=== PATIENT | male | born 1975 | race African-American/Black ===

== ENCOUNTER 2022-04-29 18:28 | Inpatient (IN) | payer MEDICARE, MEDICAID ==
[~2022-04-29] VITALS: Ht 180.3 cm; Wt 111.0 kg
[2022-04-29 19:55] LABS: Basophils # (auto) 0.1 10 ^3/uL (0-0.2); Basophils % (auto) 1.6 % (0.0-2.0); Eosinophils # (auto) 0.6 10 ^3/uL (0-0.8); Eosinophils % (auto) 14.4 % (0.0-7.0); Hematocrit 28.5 % (41.0-53.0); Hemoglobin 9.1 g/dL (13.5-17.5); Lymphocytes % (auto) 22.9 % (10.0-50.0); Mean Corpuscular Hemoglobin 30.5 pg (28.0-32.0); Mean Corpuscular Volume 95.2 fL (80.0-100.0); Monocytes # (auto) 0.4 10 ^3/uL (0-1.3); Monocytes % (auto) 10.2 % (0.0-12.0); Neutrophils # (auto) 2.2 10 ^3/uL (1.6-8.6); Neutrophils % (auto) 50.9 % (37.0-80.0); Red Cell Distribution Width 15.8 % (11.8-14.3); White Blood Cell 4.3 10^3/uL (4.4-10.8)
[2022-04-29 20:11] LABS: Albumin 3.3 g/dL (3.4-5.0); Calcium 8.8 mg/dL (8.5-10.1)
[2022-04-29 20:25] LABS: BUN/Creatinine Ratio 3.9; Bilirubin, Total 0.5 mg/dL (0.2-1.0); Total Protein 5.9 g/dL (6.4-8.2)
[2022-04-29] MEDS ORDERED: ASPirin 325 MG TAB PO ONE (20:30)
[2022-04-29] MEDS ORDERED: IOHEXOL 350 MG/ML 100ML IJ ONE (20:35)
[2022-04-29] MEDS ORDERED: InsuLIN REG 1unit/0.01ml Soln (100units/ml) IV ONE (21:15)
[2022-04-29] MEDS ORDERED: ALBUTEROL SULF 2.5 MG/0.5ML(0.5%) NEB SOLN NEB ONE (21:15)
[2022-04-29] MEDS ORDERED: DEXTROSE (50%) 50ML SYRG IV ONE (21:15)
[2022-04-29] MEDS ORDERED: CALCIUM GLUC 1,000mg/50ml-NS 50 ML IV ONE (21:15)
[2022-04-29] MEDS ORDERED: hydrALAZINE HCL 20 MG/ML VL IV ONE ×2 (21:30→21:45)
[2022-04-29] MEDS ORDERED: ACETAMINOPHEN 325 MG TAB PO PRN (21:30)
[2022-04-29] MEDS ORDERED: MORPHINE SULFATE INJ 2 MG/ml SYRG IV PRN (21:30)
[2022-04-29] MEDS ORDERED: PANTOPRAZOLE 40 MG TAB PO ONE (21:30)
[2022-04-29] MEDS ORDERED: ALBUTEROL SULF 2.5 MG/0.5ML(0.5%) NEB SOLN NEB PRN (21:30)
[2022-04-29] MEDS ORDERED: ONDANSETRON HCL 4 MG/2 ML VIAL IV PRN (21:30)
[2022-04-29] MEDS ORDERED: NITROGLYCERIN 0.4 MG SL TAB SL PRN (21:30)
[2022-04-29] MEDS ORDERED: FUROSEMIDE 40 MG/4 ML VIAL IV ONE (21:45)
[2022-04-29 21:49] VITALS: BP 186/101
[2022-04-29] MEDS: hydrALAZINE HCL 25 MG TAB PO SCH (22:00)
[2022-04-29] MEDS: ATORVASTATIN 20 MG TAB PO SCH (22:40)
[2022-04-29] MEDS: CARVEDILOL 3.125 MG TAB PO SCH (22:49)
[2022-04-30 01:55] LABS: Urine Bacteria FEW /hpf (None Seen); Urine Blood TRACE /uL (Negative); Urine Specific Gravity 1.009 (1.001-1.035); Urine WBC 2 /hpf (0 - 3)
[2022-04-30] MEDS: AZITHROMYCIN 500MG/ 250ML 250 ML IV SCH (06:13)
[2022-04-30 06:23] LABS: Basophils # (auto) 0.1 10 ^3/uL (0-0.2); Basophils % (auto) 1.3 % (0.0-2.0); Eosinophils # (auto) 0.4 10 ^3/uL (0-0.8); Hematocrit 30.1 % (41.0-53.0); Hemoglobin 9.4 g/dL (13.5-17.5); Lymphocytes # (auto) 0.7 10 ^3/uL (0.4-5.4); Lymphocytes % (auto) 13.3 % (10.0-50.0); Mean Corpuscular Hemoglobin 30.7 pg (28.0-32.0); Mean Corpuscular Hgb Conc. 31.2 g/dL (32.0-36.0); Mean Corpuscular Volume 98.2 fL (80.0-100.0); Monocytes # (auto) 0.5 10 ^3/uL (0-1.3); Monocytes % (auto) 8.9 % (0.0-12.0); Neutrophils # (auto) 3.5 10 ^3/uL (1.6-8.6); Neutrophils % (auto) 69.5 % (37.0-80.0); Nucleated Red Blood Cells % 0.1 %; Red Blood Cells 3.06 10^6/uL (4.5-5.90); Red Cell Distribution Width 15.9 % (11.8-14.3); White Blood Cell 5.1 10^3/uL (4.4-10.8)
[2022-04-30 06:45] LABS: Potassium 6.7 mmol/L (3.5-5.1)
[2022-04-30 06:47] LABS: Albumin 3.2 g/dL (3.4-5.0); BUN/Creatinine Ratio 3.8; Bilirubin, Total 0.4 mg/dL (0.2-1.0); Calcium 8.6 mg/dL (8.5-10.1); Total Protein 6.3 g/dL (6.4-8.2)
[2022-04-30] MEDS: hydrALAZINE HCL 20 MG/ML VL IV PRN (06:48)
[2022-04-30] MEDS: cefTRIAXone 1GM/50ML D5W 50 ML IV SCH (07:31)
[2022-04-30] MEDS ORDERED: ALBUTEROL SULF 2.5 MG/0.5ML(0.5%) NEB SOLN NEB ONE (09:00)
[2022-04-30] MEDS ORDERED: CALCIUM GLUC 1,000mg/50ml-NS 50 ML IV ONE (09:00)
[2022-04-30] MEDS ORDERED: FUROSEMIDE 40 MG/4 ML VIAL IV ONE (09:00)
[2022-04-30] MEDS ORDERED: DEXTROSE (50%) 50ML SYRG IV ONE (09:00)
[2022-04-30] MEDS ORDERED: InsuLIN REG 1unit/0.01ml Soln (100units/ml) IV ONE (09:00)
[2022-04-30] MEDS: FUROSEMIDE 20 MG TAB PO SCH (09:39)
[2022-04-30] MEDS: hydrALAZINE HCL 25 MG TAB PO SCH (09:54)
[2022-04-30] MEDS: CARVEDILOL 3.125 MG TAB PO SCH (09:54)
[2022-04-30] MEDS: ASPirin 81 mg TAB PO SCH (09:54)
[2022-04-30] MEDS ORDERED: amLODIPine BESYLATE 5 MG TAB PO SCH (10:00)
[2022-04-30] MEDS ORDERED: cloNIDine 0.2 mg/24hr 7DAY PATCH TD SCH (10:15)
[2022-04-30 11:58] LABS: Cholesterol 133 mg/dL (< 200); HDL Cholesterol 57 mg/dL (40-59); LDL Cholesterol 72 mg/dL (< 100); Triglycerides 68 mg/dL (< 150)
[2022-04-30] MEDS: HYDROcodone-ACET 5/325MG TAB PO PRN ×2 (13:31→21:31)
[2022-04-30 16:45] VITALS: BP 179/91
[2022-04-30 17:00] VITALS: BP 179/81
[2022-04-30] MEDS: hydrALAZINE HCL 20 MG/ML VL IV SCH ×2 (17:02→21:30)
[2022-04-30] MEDS: MORPHINE SULFATE INJ 2 MG/ml SYRG IV PRN (18:19)
[2022-04-30] MEDS: ATORVASTATIN 20 MG TAB PO SCH (21:30)
[2022-04-30 22:00] VITALS: BP 188/85
[2022-05-01] MEDS: MORPHINE SULFATE INJ 2 MG/ml SYRG IV PRN (02:04)
[2022-05-01 05:15] VITALS: BP 172/86
[2022-05-01] MEDS: hydrALAZINE HCL 20 MG/ML VL IV SCH (06:00)
[2022-05-01 07:30] VITALS: BP 185/97
[2022-05-01 08:29] VITALS: BP 185/97
[2022-05-01] MEDS: ASPirin 81 mg TAB PO SCH (09:33)
[2022-05-01] MEDS: FUROSEMIDE 20 MG TAB PO SCH (09:33)
[2022-05-01] MEDS: cefTRIAXone 1GM/50ML D5W 50 ML IV SCH (09:33)
[2022-05-01] MEDS: AZITHROMYCIN 500MG/ 250ML 250 ML IV SCH (09:34)
[2022-05-01] MEDS: METOPROLOL SUCCINATE XL 50 MG TAB PO SCH (09:34)
[2022-05-01] MEDS ORDERED: NIFEdipine ER 30 MG TAB PO SCH (10:00)
[2022-05-01] MEDS ORDERED: MINOXIDIL 2.5 MG TAB PO ONE (11:00)
[2022-05-01 11:40] VITALS: BP 170/85
[2022-05-01] MEDS ORDERED: ERGOCALCIFEROL 50,000 UNIT(1.25MG) CAP PO SCH (12:00)
[2022-05-01] MEDS: hydrALAZINE HCL 25 MG TAB PO SCH ×2 (14:19→21:18)
[2022-05-01] MEDS: NIFEdipine ER 30 MG TAB PO SCH (15:42)
[2022-05-01 16:52] VITALS: BP 166/96
[2022-05-01] MEDS: hydrALAZINE HCL 20 MG/ML VL IV PRN (18:48)
[2022-05-01] MEDS: ATORVASTATIN 20 MG TAB PO SCH (21:18)
[2022-05-01 22:00] VITALS: BP 137/70
[2022-05-02] VITALS (7 sets, daily range): BP systolic 109–132; BP diastolic 56–66
[2022-05-02 04:47] LABS: BUN/Creatinine Ratio 3.9
[2022-05-02 04:51] LABS: Potassium 6.1 mmol/L (3.5-5.1)
[2022-05-02] MEDS: hydrALAZINE HCL 25 MG TAB PO SCH ×3 (06:45→21:36)
[2022-05-02] MEDS ORDERED: SODIUM CHL 0.9% 1000 ML BAG XX ONE ×2 (07:00→10:15)
[2022-05-02] MEDS: cefTRIAXone 1GM/50ML D5W 50 ML IV SCH (09:00)
[2022-05-02] MEDS: AZITHROMYCIN 500MG/ 250ML 250 ML IV SCH (09:50)
[2022-05-02] MEDS: ASPirin 81 mg TAB PO SCH (09:50)
[2022-05-02] MEDS: FUROSEMIDE 20 MG TAB PO SCH (09:52)
[2022-05-02] MEDS: MINOXIDIL 2.5 MG TAB PO SCH (09:53)
[2022-05-02] MEDS: METOPROLOL SUCCINATE XL 50 MG TAB PO SCH (09:53)
[2022-05-02] MEDS: NIFEdipine ER 30 MG TAB PO SCH (09:53)
[2022-05-02] MEDS ORDERED: SODIUM ZIRCONIUM CYCL 10 GM PAK PO ONE (10:45)
[2022-05-02] MEDS ORDERED: ALBUTEROL SULF 2.5 MG/0.5ML(0.5%) NEB SOLN NEB ONE (10:45)
[2022-05-02] MEDS: HYDROcodone-ACET 5/325MG TAB PO PRN ×2 (11:43→21:37)
[2022-05-02] MEDS ORDERED: EPOETIN ALFA-EPBX 4,000 UNIT/ML VIAL SC ONE (21:00)
[2022-05-02] MEDS: ATORVASTATIN 20 MG TAB PO SCH (21:36)
[2022-05-03 05:00] VITALS: BP 139/67
[2022-05-03] MEDS: hydrALAZINE HCL 25 MG TAB PO SCH (05:08)
[2022-05-03 05:21] LABS: Potassium 5.3 mmol/L (3.5-5.1)
[2022-05-03 05:25] LABS: BUN/Creatinine Ratio 3.3; Calcium 8.7 mg/dL (8.5-10.1)
[2022-05-03 09:00] VITALS: BP 119/58
[2022-05-03] MEDS: cefTRIAXone 1GM/50ML D5W 50 ML IV SCH (09:33)
[2022-05-03] MEDS: AZITHROMYCIN 500MG/ 250ML 250 ML IV SCH ×2 (10:00→10:26)
[2022-05-03] MEDS ORDERED: MIN25T PO (10:01)
[2022-05-03] MEDS ORDERED: SODI10PA PO (10:01)
[2022-05-03] MEDS ORDERED: ERGO1CAP23 PO (10:01)
[2022-05-03] MEDS ORDERED: AZIT250T PO (10:02)
[2022-05-03] MEDS: FUROSEMIDE 20 MG TAB PO SCH (10:27)
[2022-05-03] MEDS: ASPirin 81 mg TAB PO SCH (10:27)
[2022-05-03] MEDS: NIFEdipine ER 30 MG TAB PO SCH (10:28)
[2022-05-03] MEDS: MINOXIDIL 2.5 MG TAB PO SCH (10:28)
[2022-05-03] MEDS: METOPROLOL SUCCINATE XL 50 MG TAB PO SCH (10:29)
[2022-05-03 11:48] VITALS: BP 119/58
== END 2022-05-03 14:00 | disposition home or self-care (01) | DRG 291 ==
LOC: ER 18:28 → TELE 21:40 → TELE-CENTR 04-30 15:42
PROVIDERS: ADMIT Nurse Practitioner; ATTEND Internal Medicine
PROC: 5A1D70Z Performance of Urinary Filtration, Intermittent, Less than 6 Hours Per Day (ICD-10-PCS; principal; 2022-04-30)
PROC: 5A1D70Z Performance of Urinary Filtration, Intermittent, Less than 6 Hours Per Day (ICD-10-PCS; 2022-05-02)
DX: I13.2 Hypertensive heart and chronic kidney disease with heart failure and with stage 5 chronic kidney disease, or end stage renal disease (principal); I50.43 Acute on chronic combined systolic (congestive) and diastolic (congestive) heart failure; J18.9 Pneumonia, unspecified organism; J96.01 Acute respiratory failure with hypoxia; N18.6 End stage renal disease; I16.0 Hypertensive urgency; D63.1 Anemia in chronic kidney disease; E78.5 Hyperlipidemia, unspecified; E87.5 Hyperkalemia; Z20.822 Contact with and (suspected) exposure to COVID-19; E66.9 Obesity, unspecified; M89.9 Disorder of bone, unspecified; Z99.2 Dependence on renal dialysis; Z82.49 Family history of ischemic heart disease and other diseases of the circulatory system; Z68.34 Body mass index [BMI] 34.0-34.9, adult; Z86.16 Personal history of COVID-19
CPT/HCPCS: 36415; 71045; 71275; 80048; 80053; 80061; 81001; 82306; 82962; 83036; 83735; 83880; 84132; 84443; 84484; 85025; 85379; 87081; 87426; 90935; 93005; 93306; 94640; 94644; 96365; 96366; 96367; 96368; 96375; 96376; 99291; G0378; J0696; J1642; J1815

== ENCOUNTER 2022-05-23 09:34 | Inpatient (IN) | payer MEDICARE, MEDICAID ==
[~2022-05-23 09:34] MED LIST: AZIT250T PO; ERGO1CAP23 PO; MIN25T PO; SODI10PA PO
[2022-05-23 10:24] LABS: Basophils # (auto) 0.1 10 ^3/uL (0-0.2); Basophils % (auto) 1.3 % (0.0-2.0); Eosinophils # (auto) 0.7 10 ^3/uL (0-0.8); Eosinophils % (auto) 13.5 % (0.0-7.0); Hematocrit 27.9 % (41.0-53.0); Hemoglobin 9.2 g/dL (13.5-17.5); Lymphocytes # (auto) 0.7 10 ^3/uL (0.4-5.4); Lymphocytes % (auto) 14.6 % (10.0-50.0); Mean Corpuscular Hemoglobin 30.5 pg (28.0-32.0); Mean Corpuscular Volume 92.3 fL (80.0-100.0); Monocytes # (auto) 0.6 10 ^3/uL (0-1.3); Monocytes % (auto) 13.1 % (0.0-12.0); Neutrophils # (auto) 2.8 10 ^3/uL (1.6-8.6); Neutrophils % (auto) 57.5 % (37.0-80.0); Red Blood Cells 3.02 10^6/uL (4.5-5.90); Red Cell Distribution Width 14.3 % (11.8-14.3); White Blood Cell 4.9 10^3/uL (4.4-10.8)
[2022-05-23 10:42] LABS: Potassium 4.2 mmol/L (3.5-5.1)
[2022-05-23] MEDS ORDERED: cloNIDine HCL 0.1 MG TAB PO ONE (10:45)
[2022-05-23 10:49] LABS: Albumin 3.4 g/dL (3.4-5.0); BUN/Creatinine Ratio 3.1; Bilirubin, Total 0.6 mg/dL (0.2-1.0); Total Protein 6.4 g/dL (6.4-8.2)
[2022-05-23] MEDS ORDERED: SODIUM CHLORIDE 0.9% 1,000 ML IV ONE (11:00)
[2022-05-23 12:17] VITALS: BP 152/82
[2022-05-23] MEDS ORDERED: FUROSEMIDE 40 MG/4 ML VIAL IV ONE ×2 (13:00→14:45)
[2022-05-23 13:15] LABS: INR 1.07 (0.9-1.15); Partial Thromboplastin Time 25.7 sec (24.6-33.4)
[2022-05-23] MEDS ORDERED: NITROGLYCERIN 0.4 MG SL TAB SL PRN (14:30)
[2022-05-23] MEDS ORDERED: MORPHINE SULFATE INJ 2 MG/ml SYRG IV PRN (14:30)
[2022-05-23] MEDS ORDERED: FURO1TAB33 PO (14:39)
[2022-05-23] MEDS ORDERED: hydrALAZINE HCL 20 MG/ML VL IV PRN (15:15)
[2022-05-23] MEDS ORDERED: HEPARIN SODIUM (PORCINE) 5000 UNITS/ML 1ML VIAL SC SCH (22:00)
[2022-05-24] MEDS ORDERED: FUROSEMIDE 20 MG/2 ML VIAL IV SCH (10:00)
== END 2022-05-23 17:20 | disposition left against medical advice (07) | DRG 291 ==
LOC: ER 09:34 → TELE 14:36
PROVIDERS: ADMIT Nurse Practitioner Family; ATTEND Nurse Practitioner Family
DX: I13.2 Hypertensive heart and chronic kidney disease with heart failure and with stage 5 chronic kidney disease, or end stage renal disease (principal); I50.43 Acute on chronic combined systolic (congestive) and diastolic (congestive) heart failure; J96.01 Acute respiratory failure with hypoxia; N18.6 End stage renal disease; E44.1 Mild protein-calorie malnutrition; I16.1 Hypertensive emergency; E66.9 Obesity, unspecified; E78.5 Hyperlipidemia, unspecified; D63.8 Anemia in other chronic diseases classified elsewhere; Z82.49 Family history of ischemic heart disease and other diseases of the circulatory system; Z79.899 Other long term (current) drug therapy; Z99.2 Dependence on renal dialysis; Z68.30 Body mass index [BMI] 30.0-30.9, adult
CPT/HCPCS: 36415; 36600; 71045; 80053; 82805; 83735; 83880; 84484; 85025; 85379; 85610; 85730; 93005; G0378

== ENCOUNTER 2022-05-26 02:17 | Inpatient (IN) | payer MEDICARE, MEDICAID ==
[~2022-05-26] VITALS: Ht 180.3 cm; Wt 110.1 kg
[~2022-05-26 02:17] MED LIST changes: +FURO1TAB33 PO
[2022-05-26] MEDS ORDERED: FUROSEMIDE 20 MG TAB PO ONE (03:15)
[2022-05-26] MEDS ORDERED: cloNIDine HCL 0.1 MG TAB PO ONE (03:15)
[2022-05-26 04:13] LABS: Basophils # (auto) 0.1 10 ^3/uL (0-0.2); Eosinophils # (auto) 0.8 10 ^3/uL (0-0.8); Eosinophils % (auto) 13.9 % (0.0-7.0); Hematocrit 29.3 % (41.0-53.0); Hemoglobin 9.8 g/dL (13.5-17.5); Lymphocytes % (auto) 18.3 % (10.0-50.0); Mean Corpuscular Hemoglobin 30.6 pg (28.0-32.0); Mean Corpuscular Hgb Conc. 33.3 g/dL (32.0-36.0); Mean Corpuscular Volume 91.9 fL (80.0-100.0); Monocytes # (auto) 0.6 10 ^3/uL (0-1.3); Monocytes % (auto) 11.3 % (0.0-12.0); Neutrophils # (auto) 3.1 10 ^3/uL (1.6-8.6); Neutrophils % (auto) 55.5 % (37.0-80.0); Nucleated Red Blood Cells % 0.1 %; Red Blood Cells 3.19 10^6/uL (4.5-5.90); Red Cell Distribution Width 14.8 % (11.8-14.3); White Blood Cell 5.5 10^3/uL (4.4-10.8)
[2022-05-26 04:23] LABS: INR 1.05 (0.9-1.15); Partial Thromboplastin Time 26.8 sec (24.6-33.4)
[2022-05-26 04:24] LABS: Albumin 3.5 g/dL (3.4-5.0); BUN/Creatinine Ratio 3.6; Potassium 4.2 mmol/L (3.5-5.1)
[2022-05-26 04:27] LABS: Bilirubin, Total 0.8 mg/dL (0.2-1.0); Total Protein 6.5 g/dL (6.4-8.2)
[2022-05-26] MEDS ORDERED: NTG 0.1MG/HR TOPICAL PATCH TD ONE (05:45)
[2022-05-26] MEDS ORDERED: NITROGLYCERIN 0.4 MG SL TAB SL PRN (06:45)
[2022-05-26] MEDS ORDERED: ONDANSETRON HCL 4 MG/2 ML VIAL IV PRN (06:45)
[2022-05-26] MEDS ORDERED: cloNIDine HCL 0.1 MG TAB PO PRN (06:45)
[2022-05-26] MEDS ORDERED: ACETAMINOPHEN 325 MG TAB PO PRN (06:45)
[2022-05-26] MEDS ORDERED: MORPHINE SULFATE INJ 2 MG/ml SYRG IV PRN ×4 (06:45→17:30)
[2022-05-26] MEDS ORDERED: NIFEdipine ER 30 MG TAB PO SCH (10:00)
[2022-05-26] MEDS: ASPirin 81 mg TAB PO SCH (10:50)
[2022-05-26] MEDS: hydrALAZINE HCL 25 MG TAB PO SCH ×2 (10:50→21:47)
[2022-05-26] MEDS: FUROSEMIDE 40 MG TAB PO SCH (10:51)
[2022-05-26] MEDS: METOPROLOL TARTRATE 50 MG TAB PO SCH ×2 (10:51→21:48)
[2022-05-26] MEDS: PANTOPRAZOLE 40 MG TAB PO SCH (10:52)
[2022-05-26] MEDS ORDERED: cefTRIAXone 1GM/50ML D5W 50 ML IV ONE (14:00)
[2022-05-26] MEDS ORDERED: DOXYCYCLINE 100 MG TAB/CAP PO ONE (14:00)
[2022-05-26 14:19] VITALS: BP 181/96
[2022-05-26 16:45] VITALS: BP 173/84
[2022-05-26 17:09] VITALS: BP 173/84
[2022-05-26] MEDS ORDERED: SODIUM CHL 0.9% 1000 ML BAG XX SCH (17:45)
[2022-05-26] MEDS: IPRATROPIUM BROM 0.5 MG/2.5ML INH SOL NEB SCH ×2 (19:15→23:52)
[2022-05-26] MEDS: ALBUTEROL SULF 2.5 MG/0.5ML(0.5%) NEB SOLN NEB SCH ×2 (19:15→23:52)
[2022-05-26 20:00] VITALS: BP 178/92
[2022-05-26] MEDS: MINOXIDIL 2.5 MG TAB PO SCH (21:48)
[2022-05-26] MEDS: DOXYCYCLINE 100 MG TAB/CAP PO SCH (21:49)
[2022-05-26 22:00] VITALS: BP 134/66
[2022-05-27 05:00] VITALS: BP 126/86
[2022-05-27] MEDS: ALBUTEROL SULF 2.5 MG/0.5ML(0.5%) NEB SOLN NEB SCH ×3 (05:52→19:25)
[2022-05-27] MEDS: IPRATROPIUM BROM 0.5 MG/2.5ML INH SOL NEB SCH ×3 (05:52→19:25)
[2022-05-27 07:19] LABS: Hematocrit 26.4 % (41.0-53.0); Hemoglobin 8.9 g/dL (13.5-17.5); Mean Corpuscular Hemoglobin 30.6 pg (28.0-32.0); Mean Corpuscular Hgb Conc. 33.5 g/dL (32.0-36.0); Mean Corpuscular Volume 91.2 fL (80.0-100.0); Red Cell Distribution Width 14.7 % (11.8-14.3); White Blood Cell 3.9 10^3/uL (4.4-10.8)
[2022-05-27 07:25] LABS: Band Neutrophils % (manual) 0; Basophils % (manual) 0 (0.0-2.0); Blast Cells 0; Metamyelocytes % 0; Myelocytes % 0; Promyelocytes % 0; Reactive Lymphocytes 0
[2022-05-27 07:38] LABS: Albumin 3.1 g/dL (3.4-5.0); BUN/Creatinine Ratio 3.2; Potassium 4.2 mmol/L (3.5-5.1)
[2022-05-27 07:41] LABS: Bilirubin, Total 0.7 mg/dL (0.2-1.0); Total Protein 6.2 g/dL (6.4-8.2)
[2022-05-27] MEDS: FUROSEMIDE 40 MG TAB PO SCH (08:48)
[2022-05-27] MEDS: NIFEdipine ER 30 MG TAB PO SCH (08:48)
[2022-05-27] MEDS: hydrALAZINE HCL 25 MG TAB PO SCH ×2 (08:49→21:16)
[2022-05-27] MEDS: PANTOPRAZOLE 40 MG TAB PO SCH (08:49)
[2022-05-27] MEDS: METOPROLOL TARTRATE 50 MG TAB PO SCH ×2 (08:49→21:17)
[2022-05-27] MEDS: MINOXIDIL 2.5 MG TAB PO SCH ×2 (08:49→21:17)
[2022-05-27] MEDS: DOXYCYCLINE 100 MG TAB/CAP PO SCH ×2 (08:50→21:18)
[2022-05-27] MEDS: cefTRIAXone 1GM/50ML D5W 50 ML IV SCH (08:50)
[2022-05-27] MEDS: ASPirin 81 mg TAB PO SCH (08:50)
[2022-05-27 09:00] VITALS: BP 120/56
[2022-05-27 13:00] VITALS: BP 143/62
[2022-05-27 13:31] LABS: Eosinophils % (manual) 21 (0-7); Lymphocytes % (manual) 25 (10.0-50.0); Monocytes % (manual) 12 (0-12)
[2022-05-27 16:52] VITALS: BP 117/78
[2022-05-27 22:00] VITALS: BP 123/66
[2022-05-28] MEDS: ALBUTEROL SULF 2.5 MG/0.5ML(0.5%) NEB SOLN NEB SCH ×4 (00:24→18:22)
[2022-05-28] MEDS: IPRATROPIUM BROM 0.5 MG/2.5ML INH SOL NEB SCH ×4 (00:24→18:22)
[2022-05-28 05:00] VITALS: BP 168/82
[2022-05-28 09:00] VITALS: BP 153/78
[2022-05-28] MEDS: cefTRIAXone 1GM/50ML D5W 50 ML IV SCH (09:00)
[2022-05-28] MEDS: hydrALAZINE HCL 25 MG TAB PO SCH (10:00)
[2022-05-28] MEDS: MINOXIDIL 2.5 MG TAB PO SCH (10:00)
[2022-05-28] MEDS: NIFEdipine ER 30 MG TAB PO SCH (10:00)
[2022-05-28] MEDS ORDERED: BUMETANIDE 2.5mg/10ml (0.25 mg/ml) INJ IV SCH (10:00)
[2022-05-28] MEDS: ASPirin 81 mg TAB PO SCH (10:00)
[2022-05-28] MEDS ORDERED: metOLazone 5 MG TAB PO SCH (10:00)
[2022-05-28] MEDS: METOPROLOL TARTRATE 50 MG TAB PO SCH (10:00)
[2022-05-28] MEDS: DOXYCYCLINE 100 MG TAB/CAP PO SCH (10:00)
[2022-05-28] MEDS ORDERED: SODIUM CHL 0.9% 1000 ML BAG XX ONE (10:30)
[2022-05-28 13:00] VITALS: BP 156/72
[2022-05-28] MEDS ORDERED: DOX100T PO (13:55)
[2022-05-28 16:52] VITALS: BP 143/62
[2022-05-28 18:02] VITALS: BP 123/66
[2022-05-28 18:10] VITALS: BP 123/66
[2022-05-28] MEDS ORDERED: EPOETIN ALFA-EPBX 10,000 UNIT/1ML VIAL SC ONE (21:00)
== END 2022-05-28 18:30 | disposition home or self-care (01) | DRG 177 ==
LOC: ER 02:17 → TELE 06:33 → TELE-EAST 16:49
PROVIDERS: ADMIT Nurse Practitioner; ATTEND Internal Medicine
PROC: 5A1D70Z Performance of Urinary Filtration, Intermittent, Less than 6 Hours Per Day (ICD-10-PCS; principal; 2022-05-26)
PROC: 5A1D70Z Performance of Urinary Filtration, Intermittent, Less than 6 Hours Per Day (ICD-10-PCS; 2022-05-28)
DX: J15.6 Pneumonia due to other Gram-negative bacteria (principal); J96.01 Acute respiratory failure with hypoxia; N18.6 End stage renal disease; I13.2 Hypertensive heart and chronic kidney disease with heart failure and with stage 5 chronic kidney disease, or end stage renal disease; I16.0 Hypertensive urgency; I50.82 Biventricular heart failure; Z20.822 Contact with and (suspected) exposure to COVID-19; D63.8 Anemia in other chronic diseases classified elsewhere; Z91.15 Patient's noncompliance with renal dialysis; Z99.2 Dependence on renal dialysis; Z82.49 Family history of ischemic heart disease and other diseases of the circulatory system; Z91.199 Patient's noncompliance with other medical treatment and regimen due to unspecified reason
CPT/HCPCS: 36415; 36600; 71045; 80053; 82805; 83880; 84484; 85007; 85025; 85027; 85610; 85730; 86706; 87081; 87426; 90935; 93005; 94640; 96365; 96375; 99291; 99292; G0378; J0696; J1642

== ENCOUNTER → 2022-08-07 | Outpatient (CLI) | payer MEDICARE, MEDICAID ==
[~2022-08-07] MED LIST changes: -AZIT250T PO; +DOX100T PO
== END | disposition home or self-care (01) ==
LOC: LAB 09:35
PROVIDERS: ATTEND Internal Medicine
DX: Z12.11 Encounter for screening for malignant neoplasm of colon (principal)
CPT/HCPCS: 82274

== ENCOUNTER 2022-08-18 15:59 | Emergency (ER) | payer MEDICARE, MEDICAID ==
[~2022-08-18] VITALS: Ht 180.3 cm; Wt 96.3 kg
[2022-08-18 16:57] VITALS: BP 147/81
[2022-08-18] MEDS ORDERED: AMOX-277 PO (17:37)
[2022-08-18] MEDS ORDERED: ACET1CAP14 PO (17:39)
[2022-08-18] MEDS ORDERED: ACETAMINOPHEN 500 MG TAB PO ONE (17:45)
== END 2022-08-18 17:44 | disposition home or self-care (01) ==
LOC: ER 15:59
DX: H66.92 Otitis media, unspecified, left ear (principal); I13.2 Hypertensive heart and chronic kidney disease with heart failure and with stage 5 chronic kidney disease, or end stage renal disease; N18.6 End stage renal disease; I50.9 Heart failure, unspecified

== ENCOUNTER 2022-09-11 10:18 | Inpatient (IN) | payer MEDICARE, MEDICAID ==
[~2022-09-11] VITALS: Ht 180.3 cm; Wt 100.0 kg
[~2022-09-11 10:18] MED LIST changes: +ACET1CAP14 PO; +AMOX-277 PO
[2022-09-11 11:44] LABS: Basophils # (auto) 0.1 10 ^3/uL (0-0.2); Basophils % (auto) 1.2 % (0.0-2.0); Eosinophils # (auto) 0.9 10 ^3/uL (0-0.8); Eosinophils % (auto) 14.9 % (0.0-7.0); Hematocrit 34.6 % (41.0-53.0); Hemoglobin 11.2 g/dL (13.5-17.5); Lymphocytes # (auto) 0.8 10 ^3/uL (0.4-5.4); Lymphocytes % (auto) 14.1 % (10.0-50.0); Mean Corpuscular Hemoglobin 30.5 pg (28.0-32.0); Mean Corpuscular Hgb Conc. 32.5 g/dL (32.0-36.0); Mean Corpuscular Volume 93.7 fL (80.0-100.0); Monocytes # (auto) 0.6 10 ^3/uL (0-1.3); Monocytes % (auto) 10.1 % (0.0-12.0); Neutrophils # (auto) 3.5 10 ^3/uL (1.6-8.6); Neutrophils % (auto) 59.7 % (37.0-80.0); Nucleated Red Blood Cells % 0.1 %; Red Blood Cells 3.69 10^6/uL (4.5-5.90); Red Cell Distribution Width 17.7 % (11.8-14.3); White Blood Cell 5.9 10^3/uL (4.4-10.8)
[2022-09-11 11:56] LABS: INR 1.03 (0.9-1.15); Partial Thromboplastin Time 25.4 sec (24.6-33.4)
[2022-09-11 12:35] LABS: Potassium 4.9 mmol/L (3.5-5.1)
[2022-09-11 12:36] LABS: BUN/Creatinine Ratio 4.3
[2022-09-11 12:38] LABS: Albumin 3.4 g/dL (3.4-5.0); Bilirubin, Total 0.6 mg/dL (0.2-1.0); Calcium 9.1 mg/dL (8.5-10.1); Magnesium 2.8 mg/dL (1.6-2.6)
[2022-09-11 12:51] LABS: Urine Bacteria FEW /hpf (None Seen); Urine Blood Negative /uL (Negative); Urine Specific Gravity 1.007 (1.001-1.035); Urine WBC <1 /hpf (0 - 3)
[2022-09-11] MEDS ORDERED: HYDROcodone-ACET 5/325MG TAB PO PRN (14:00)
[2022-09-11] MEDS ORDERED: ACETAMINOPHEN 325 MG TAB PO PRN ×2 (14:00)
[2022-09-11] MEDS ORDERED: methylPREDNISolone SOD SUCC 125 MG/2 ML VL IV ONE (14:00)
[2022-09-11] MEDS ORDERED: MORPHINE SULFATE INJ 2 MG/ml SYRG IV PRN (14:00)
[2022-09-11] MEDS ORDERED: PANTOPRAZOLE 40 MG/10 ML VIAL INJ IV ONE (14:00)
[2022-09-11] MEDS ORDERED: NITROGLYCERIN 0.4 MG SL TAB SL PRN (14:00)
[2022-09-11] MEDS ORDERED: ALBUTEROL SULF 2.5 MG/0.5ML(0.5%) NEB SOLN NEB PRN (14:00)
[2022-09-11] MEDS ORDERED: FUROSEMIDE 20 MG/2 ML VIAL IV ONE (14:15)
[2022-09-11] MEDS: hydrALAZINE HCL 20 MG/ML VL IV PRN (18:27)
[2022-09-11] MEDS ORDERED: ALBUTEROL MEDNEB 2.5 mg/3ml NEB ONE (18:30)
[2022-09-11] MEDS: ALBUTEROL SULF 2.5 MG/0.5ML(0.5%) NEB SOLN NEB SCH ×2 (19:16→22:29)
[2022-09-11] MEDS: IPRATROPIUM BROM 0.5 MG/2.5ML INH SOL NEB SCH ×2 (19:16→22:29)
[2022-09-11 22:00] VITALS: BP 95/67
[2022-09-11] MEDS ORDERED: cloNIDine 0.2 mg/24hr 7DAY PATCH TD SCH (23:00)
[2022-09-11] MEDS: methylPREDNISolone SOD SUCC 125 MG/2 ML VL IV SCH (23:06)
[2022-09-11] MEDS: HEPARIN SODIUM (PORCINE) 5000 UNITS/ML 1ML VIAL SC SCH (23:09)
[2022-09-11] MEDS ORDERED: METOPROLOL TARTRATE 50 MG TAB PO ONE (23:30)
[2022-09-11] MEDS ORDERED: hydrALAZINE HCL 20 MG/ML VL IV ONE (23:30)
[2022-09-12] VITALS (9 sets, daily range): BP systolic 132–203; BP diastolic 74–113
[2022-09-12] MEDS ORDERED: FURO1TAB32 PO (01:10)
[2022-09-12] MEDS ORDERED: FERR1TAB17 PO (01:10)
[2022-09-12] MEDS ORDERED: HYDR100T22 PO (01:10)
[2022-09-12] MEDS ORDERED: NIFE1TAB30 PO (01:10)
[2022-09-12] MEDS ORDERED: METO-158 PO (01:10)
[2022-09-12] MEDS: ALBUTEROL SULF 2.5 MG/0.5ML(0.5%) NEB SOLN NEB SCH ×5 (02:00→21:30)
[2022-09-12] MEDS: IPRATROPIUM BROM 0.5 MG/2.5ML INH SOL NEB SCH ×5 (02:00→21:30)
[2022-09-12] MEDS: hydrALAZINE HCL 20 MG/ML VL IV PRN (02:55)
[2022-09-12] MEDS: HYDROcodone-ACET 5/325MG TAB PO PRN (03:18)
[2022-09-12] MEDS ORDERED: amLODIPine BESYLATE 5 MG TAB ONE (03:52)
[2022-09-12] MEDS ORDERED: hydrALAZINE HCL 25 MG TAB ONE ×2 (03:55→03:56)
[2022-09-12] MEDS ORDERED: amLODIPine BESYLATE 5 MG TAB PO ONE (04:00)
[2022-09-12] MEDS ORDERED: hydrALAZINE HCL 25 MG TAB PO ONE (04:00)
[2022-09-12] MEDS ORDERED: hydrALAZINE HCL 20 MG/ML VL IV ONE (05:15)
[2022-09-12 05:53] LABS: Basophils # (auto) 0 10 ^3/uL (0-0.2); Basophils % (auto) 0.1 % (0.0-2.0); Eosinophils # (auto) 0 10 ^3/uL (0-0.8); Eosinophils % (auto) 0.1 % (0.0-7.0); Hematocrit 32.6 % (41.0-53.0); Hemoglobin 11.1 g/dL (13.5-17.5); Lymphocytes # (auto) 0.3 10 ^3/uL (0.4-5.4); Lymphocytes % (auto) 7.4 % (10.0-50.0); Mean Corpuscular Hemoglobin 31.7 pg (28.0-32.0); Mean Corpuscular Hgb Conc. 34.1 g/dL (32.0-36.0); Mean Corpuscular Volume 92.8 fL (80.0-100.0); Monocytes # (auto) 0 10 ^3/uL (0-1.3); Monocytes % (auto) 1.2 % (0.0-12.0); Neutrophils # (auto) 3.3 10 ^3/uL (1.6-8.6); Neutrophils % (auto) 91.2 % (37.0-80.0); Nucleated Red Blood Cells % 0.1 %; Red Blood Cells 3.51 10^6/uL (4.5-5.90); Red Cell Distribution Width 17.7 % (11.8-14.3); White Blood Cell 3.6 10^3/uL (4.4-10.8)
[2022-09-12] MEDS ORDERED: ALBUTEROL MEDNEB 2.5 mg/3ml NEB ONE ×5 (06:03→21:26)
[2022-09-12 06:18] LABS: Albumin 3.1 g/dL (3.4-5.0); Calcium 8.8 mg/dL (8.5-10.1); Potassium 5.5 mmol/L (3.5-5.1)
[2022-09-12 06:20] LABS: BUN/Creatinine Ratio 4.6
[2022-09-12 06:23] LABS: Bilirubin, Total 0.6 mg/dL (0.2-1.0)
[2022-09-12] MEDS ORDERED: SODIUM CHL 0.9% 1000 ML BAG XX ONE (07:00)
[2022-09-12] MEDS ORDERED: METOPROLOL TARTRATE 50 MG TAB PO SCH (10:00)
[2022-09-12] MEDS ORDERED: amLODIPine BESYLATE 5 MG TAB PO SCH (10:00)
[2022-09-12] MEDS: MINOXIDIL 2.5 MG TAB PO SCH (10:00)
[2022-09-12] MEDS ORDERED: FUROSEMIDE 20 MG/2 ML VIAL IV SCH (10:00)
[2022-09-12] MEDS: HEPARIN SODIUM (PORCINE) 5000 UNITS/ML 1ML VIAL SC SCH ×2 (10:31→21:40)
[2022-09-12] MEDS: methylPREDNISolone SOD SUCC 125 MG/2 ML VL IV SCH (10:39)
[2022-09-12] MEDS: PANTOPRAZOLE 40 MG/10 ML VIAL INJ IV SCH (10:39)
[2022-09-12] MEDS ORDERED: LABETALOL HCL 5 MG/ML 4ML SYRINGE IV PRN (11:30)
[2022-09-12] MEDS: hydrALAZINE HCL 25 MG TAB PO SCH ×3 (12:35→21:31)
[2022-09-12] MEDS: NIFEdipine ER 30 MG TAB PO SCH (13:41)
[2022-09-12] MEDS: LABETALOL HCL 200 MG TAB PO SCH ×2 (17:45→21:32)
[2022-09-12] MEDS: FUROSEMIDE 20 MG/2 ML VIAL IV SCH (17:53)
[2022-09-12] MEDS ORDERED: NIFEdipine ER 30 MG TAB PO SCH (22:00)
[2022-09-12] MEDS ORDERED: LABETALOL HCL 200 MG TAB PO SCH (22:00)
[2022-09-13] VITALS: BP 127/74
[2022-09-13] MEDS ORDERED: ALBUTEROL MEDNEB 2.5 mg/3ml NEB ONE ×6 (01:53→21:42)
[2022-09-13] MEDS: IPRATROPIUM BROM 0.5 MG/2.5ML INH SOL NEB SCH ×6 (01:57→21:43)
[2022-09-13] MEDS: ALBUTEROL SULF 2.5 MG/0.5ML(0.5%) NEB SOLN NEB SCH ×6 (01:58→21:43)
[2022-09-13 05:00] VITALS: BP 140/76
[2022-09-13] MEDS: FUROSEMIDE 20 MG/2 ML VIAL IV SCH ×2 (05:06→17:54)
[2022-09-13] MEDS: hydrALAZINE HCL 25 MG TAB PO SCH ×3 (05:07→21:32)
[2022-09-13] MEDS: LABETALOL HCL 200 MG TAB PO SCH ×2 (05:07→21:33)
[2022-09-13 06:48] LABS: Basophils # (auto) 0 10 ^3/uL (0-0.2); Basophils % (auto) 0.6 % (0.0-2.0); Eosinophils # (auto) 0.1 10 ^3/uL (0-0.8); Eosinophils % (auto) 1.9 % (0.0-7.0); Hemoglobin 9.2 g/dL (13.5-17.5); Lymphocytes # (auto) 1.1 10 ^3/uL (0.4-5.4); Lymphocytes % (auto) 20.8 % (10.0-50.0); Mean Corpuscular Hemoglobin 31.1 pg (28.0-32.0); Mean Corpuscular Hgb Conc. 34.2 g/dL (32.0-36.0); Mean Corpuscular Volume 90.8 fL (80.0-100.0); Monocytes # (auto) 0.6 10 ^3/uL (0-1.3); Monocytes % (auto) 11.7 % (0.0-12.0); Neutrophils # (auto) 3.5 10 ^3/uL (1.6-8.6); Red Blood Cells 2.97 10^6/uL (4.5-5.90); Red Cell Distribution Width 17.6 % (11.8-14.3); White Blood Cell 5.3 10^3/uL (4.4-10.8)
[2022-09-13 06:59] LABS: BUN/Creatinine Ratio 4.6; Calcium 8.3 mg/dL (8.5-10.1); Potassium 4.6 mmol/L (3.5-5.1)
[2022-09-13 08:00] VITALS: BP 132/72
[2022-09-13] MEDS: PANTOPRAZOLE 40 MG/10 ML VIAL INJ IV SCH (09:39)
[2022-09-13] MEDS: NIFEdipine ER 30 MG TAB PO SCH (09:40)
[2022-09-13] MEDS: HEPARIN SODIUM (PORCINE) 5000 UNITS/ML 1ML VIAL SC SCH ×2 (09:46→21:34)
[2022-09-13] MEDS: MINOXIDIL 2.5 MG TAB PO SCH (09:47)
[2022-09-13] MEDS ORDERED: NIFEdipine ER 30 MG TAB PO SCH (10:00)
[2022-09-13 12:00] VITALS: BP 141/84
[2022-09-13 16:00] VITALS: BP 132/77
[2022-09-13 22:00] VITALS: BP 132/77
[2022-09-14] MEDS ORDERED: ALBUTEROL MEDNEB 2.5 mg/3ml NEB ONE ×2 (01:37→05:51)
[2022-09-14] MEDS: IPRATROPIUM BROM 0.5 MG/2.5ML INH SOL NEB SCH ×4 (01:38→14:19)
[2022-09-14] MEDS: ALBUTEROL SULF 2.5 MG/0.5ML(0.5%) NEB SOLN NEB SCH ×4 (01:38→14:19)
[2022-09-14 05:00] VITALS: BP 146/81
[2022-09-14] MEDS: FUROSEMIDE 20 MG/2 ML VIAL IV SCH (06:00)
[2022-09-14] MEDS: hydrALAZINE HCL 25 MG TAB PO SCH ×2 (06:00→14:00)
[2022-09-14] MEDS ORDERED: SODIUM CHL 0.9% 1000 ML BAG XX ONE (07:00)
[2022-09-14 09:05] VITALS: BP 176/105
[2022-09-14] MEDS: HEPARIN SODIUM (PORCINE) 5000 UNITS/ML 1ML VIAL SC SCH (10:00)
[2022-09-14] MEDS: LABETALOL HCL 200 MG TAB PO SCH (11:05)
[2022-09-14] MEDS: PANTOPRAZOLE 40 MG/10 ML VIAL INJ IV SCH (11:05)
[2022-09-14] MEDS: NIFEdipine ER 30 MG TAB PO SCH (11:06)
[2022-09-14] MEDS: HYDROcodone-ACET 5/325MG TAB PO PRN (11:19)
[2022-09-14] MEDS ORDERED: CLON0.2D TD (12:14)
[2022-09-14] MEDS ORDERED: LABE200T6 PO (12:14)
[2022-09-14 13:00] VITALS: BP 145/79
[2022-09-14 14:51] VITALS: BP 145/79
[2022-09-14] MEDS ORDERED: EPOETIN ALFA-EPBX 4,000 UNIT/ML VIAL SC ONE (21:00)
== END 2022-09-14 17:12 | disposition home or self-care (01) | DRG 291 ==
LOC: ER 10:18 → TELE 13:53 → TELE-CENTR 22:47
PROVIDERS: ADMIT Nurse Practitioner Family; ATTEND Nurse Practitioner Acute Care
PROC: 5A1D70Z Performance of Urinary Filtration, Intermittent, Less than 6 Hours Per Day (ICD-10-PCS; principal; 2022-09-12)
PROC: 5A1D70Z Performance of Urinary Filtration, Intermittent, Less than 6 Hours Per Day (ICD-10-PCS; 2022-09-14)
DX: I13.2 Hypertensive heart and chronic kidney disease with heart failure and with stage 5 chronic kidney disease, or end stage renal disease (principal); I50.23 Acute on chronic systolic (congestive) heart failure; J96.01 Acute respiratory failure with hypoxia; N18.6 End stage renal disease; I16.9 Hypertensive crisis, unspecified; Z20.822 Contact with and (suspected) exposure to COVID-19; D63.8 Anemia in other chronic diseases classified elsewhere; E66.01 Morbid (severe) obesity due to excess calories; Z68.30 Body mass index [BMI] 30.0-30.9, adult; Z79.899 Other long term (current) drug therapy; Z91.199 Patient's noncompliance with other medical treatment and regimen due to unspecified reason; Z82.49 Family history of ischemic heart disease and other diseases of the circulatory system; Z87.01 Personal history of pneumonia (recurrent); Z99.2 Dependence on renal dialysis; Z91.013 Allergy to seafood
CPT/HCPCS: 36415; 71045; 78582; 80048; 80053; 81001; 83605; 83735; 83880; 84484; 85025; 85379; 85610; 85730; 87040; 87081; 87426; 87804; 90935; 93005; 94640; 96374; 96375; 99291; C9113; G0378; J1642

== ENCOUNTER 2023-03-19 13:03 | Day surgery (SDC) | payer MEDICARE, MEDICAID ==
[2023-03-17 11:30] LABS: Hematocrit 30.5 % (41.0-53.0); Mean Corpuscular Hgb Conc. 32.8 g/dL (32.0-36.0); Mean Corpuscular Volume 97.6 fL (80.0-100.0); Red Blood Cells 3.13 10^6/uL (4.5-5.90)
[2023-03-17 11:43] LABS: Band Neutrophils % (manual) 0; Basophils % (manual) 0 (0.0-2.0); Blast Cells 0; Metamyelocytes % 0; Myelocytes % 0; Promyelocytes % 0; Reactive Lymphocytes 0
[2023-03-17 11:47] LABS: INR 1.14 (0.9-1.15); Partial Thromboplastin Time 26.7 SEC (24.5-34.5); Prothrombin Time 11.9 sec (9.3-11.8)
[2023-03-17 13:03] LABS: Eosinophils % (manual) 24 (0-7); Lymphocytes % (manual) 13 (10.0-50.0); Monocytes % (manual) 8 (0-12); Platelet Estimate Adequate
[2023-03-17 13:23] LABS: Alanine Aminotransferase 27 U/L (7-40); Alkaline Phosphatase 86 U/L (46-116); Anion Gap 8.6 (5-15); Aspartate Aminotransferase 9 U/L (13-40); BUN/Creatinine Ratio 3.8 (10.0-20.0); Blood Urea Nitrogen 38 mg/dL (9-23); Carbon Dioxide 29.4 mmol/L (20-30); Chloride 104 mmol/L (98-107); Glucose 87 mg/dL (74-106); Sodium 142 mmol/L (136-145)
[2023-03-17 13:24] LABS: Bilirubin, Total 0.6 mg/dL (0.2-1.0); Total Protein 6.3 g/dL (5.7-8.2)
[~2023-03-19] VITALS: Ht 180.3 cm; Wt 118.8 kg
[~2023-03-19 13:03] MED LIST changes: -AMOX-277 PO; +ATOR40TA52 PO; +CALC10TA PO; +CLON0.2D13 TD; -DOX100T PO; -ERGO1CAP23 PO; +FERR1TAB17 PO; +FURO1TAB32 PO; -FURO1TAB33 PO; +HYDR100T22 PO; +LABE200T6 PO; +METO-158 PO; -MIN25T PO; +NIFE1TAB30 PO; -SODI10PA PO
[2023-03-19] MEDS ORDERED: SODIUM CHLORIDE LOCK 0 ML ONE (13:12)
[2023-03-19] MEDS ORDERED: diphenhdrAMINE HCL 50 MG/1 ML VL ONE (13:13)
[2023-03-19] MEDS ORDERED: fentaNYL CITRATE 100 MCG/2 ML VL ONE ×2 (13:13)
[2023-03-19] MEDS ORDERED: MIDAZOLAM HCL 5 MG/ML-1ML VIAL ONE (13:13)
[2023-03-19] MEDS ORDERED: PROPOFOL 10 MG/ML 20 ML IV ONE (14:20)
[2023-03-19] MEDS ORDERED: LIDOCAINE 2% (LOCAL ANESTH.) PF 5ml SDV ONE (14:20)
[2023-03-19 14:49] VITALS: TEMP 97.5; O2SAT 98
[2023-03-19 15:34] VITALS: BP 143/82; PULSE 67; RESP 12; O2SAT 98
== END 2023-03-19 15:37 | disposition home or self-care (01) ==
LOC: GI 13:03
PROVIDERS: ATTEND Internal Medicine Gastroenterology
DX: Z12.11 Encounter for screening for malignant neoplasm of colon (principal); K64.8 Other hemorrhoids; I12.0 Hypertensive chronic kidney disease with stage 5 chronic kidney disease or end stage renal disease; N18.6 End stage renal disease; E78.5 Hyperlipidemia, unspecified; J45.909 Unspecified asthma, uncomplicated; Z87.01 Personal history of pneumonia (recurrent); Z82.49 Family history of ischemic heart disease and other diseases of the circulatory system; Z79.899 Other long term (current) drug therapy; Z98.890 Other specified postprocedural states
CPT/HCPCS: 36415; 80053; 85007; 85027; 85610; 85730; G0121; J2001; J2704; J7030; J2250

== ENCOUNTER 2023-05-13 06:09 | Inpatient (IN) | payer MEDICARE, MEDICAID ==
[~2023-05-13] VITALS: Ht 180.3 cm; Wt 94.2 kg
[2023-05-13 06:39] LABS: Basophils # (auto) 0 10 ^3/uL (0-0.2); Basophils % (auto) 1.2 % (0.0-2.0); Eosinophils # (auto) 0.3 10 ^3/uL (0-0.8); Eosinophils % (auto) 10.8 % (0.0-7.0); Hematocrit 26.1 % (41.0-53.0); Hemoglobin 8.7 g/dL (13.5-17.5); Lymphocytes # (auto) 0.6 10 ^3/uL (0.4-5.4); Lymphocytes % (auto) 17.9 % (10.0-50.0); Mean Corpuscular Hemoglobin 32.2 pg (28.0-32.0); Mean Corpuscular Hgb Conc. 33.4 g/dL (32.0-36.0); Mean Corpuscular Volume 96.4 fL (80.0-100.0); Monocytes # (auto) 0.6 10 ^3/uL (0-1.3); Monocytes % (auto) 17.1 % (0.0-12.0); Neutrophils # (auto) 1.7 10 ^3/uL (1.6-8.6); Red Blood Cells 2.71 10^6/uL (4.5-5.90); Red Cell Distribution Width 15.7 % (11.8-14.3); White Blood Cell 3.2 10^3/uL (4.4-10.8)
[2023-05-13 06:47] LABS: INR 1.14 (0.9-1.15); Partial Thromboplastin Time 28.5 SEC (24.5-34.5); Prothrombin Time 11.9 sec (9.3-11.8)
[2023-05-13 07:06] LABS: Alanine Aminotransferase 29 U/L (7-40); Albumin 4.1 g/dL (3.2-4.8); Alkaline Phosphatase 77 U/L (46-116); Anion Gap 8 (5-15); Aspartate Aminotransferase 12 U/L (13-40); BUN/Creatinine Ratio 3.6 (10.0-20.0); Blood Urea Nitrogen 32 mg/dL (9-23); Calcium 9.2 mg/dL (8.7-10.4); Carbon Dioxide 33 mmol/L (20-30); Chloride 99 mmol/L (98-107); Glucose 92 mg/dL (74-106); Magnesium 2.1 mg/dL (1.6-2.6); Potassium 4.2 mmol/L (3.5-5.1); Sodium 140 mmol/L (136-145)
[2023-05-13 07:07] LABS: Bilirubin, Total 0.8 mg/dL (0.2-1.0); Total Protein 6.2 g/dL (5.7-8.2)
[2023-05-13] MEDS ORDERED: FUROSEMIDE 40 MG/4 ML VIAL IV ONE (08:00)
[2023-05-13] MEDS ORDERED: LABETALOL HCL 5 MG/ML 4ML SYRINGE IV ONE (08:30)
[2023-05-13 09:30] VITALS: PULSE 71; RESP 22; O2SAT 99
[2023-05-13] MEDS ORDERED: SODIUM CHL 0.9% 1000 ML BAG XX ONE (10:30)
[2023-05-13] MEDS ORDERED: cloNIDine 0.2 mg/24hr 7DAY PATCH TD SCH (11:30)
[2023-05-13] MEDS ORDERED: CALCIUM ACETATE 667 MG CAP PO SCH (11:30)
[2023-05-13] MEDS ORDERED: ONDANSETRON HCL 4 MG/2 ML VIAL IV PRN (13:00)
[2023-05-13] MEDS: NIFEdipine ER 30 MG TAB PO SCH (13:27)
[2023-05-13] MEDS: hydrALAZINE HCL 25 MG TAB PO SCH ×2 (13:27→18:29)
[2023-05-13] MEDS: MORPHINE SULFATE INJ 2 MG/ml SYRG IV PRN ×2 (15:48→23:24)
[2023-05-13] MEDS: FERRIC CITRATE 420 MG PO SCH ×2 (16:00→18:47)
[2023-05-13] MEDS: CALCIUM ACETATE 667 MG CAP PO SCH (18:28)
[2023-05-13] MEDS: FUROSEMIDE 100 MG/10ML VIAL IV SCH (18:30)
[2023-05-13 20:10] VITALS: PULSE 69; RESP 14; O2SAT 98
[2023-05-13 20:56] LABS: Urine Bacteria NONE SEEN /hpf (None Seen); Urine Blood 1+ /uL (Negative); Urine Clarity Clear (Clear); Urine Color Colorless (Yellow); Urine Protein, UAD 3+ (Negative); Urine Specific Gravity 1.006 (1.001-1.035); Urine Urobilinogen Normal (Negative); Urine WBC 1 /hpf (0 - 3); Urine pH 8.5 (5.0-8.0)
[2023-05-13] MEDS ORDERED: LABETALOL HCL 200 MG TAB PO SCH (22:00)
[2023-05-13] MEDS ORDERED: ATORVASTATIN 20 MG TAB PO SCH (22:00)
[2023-05-13] MEDS ORDERED: METOPROLOL TARTRATE 50 MG TAB PO SCH (22:00)
[2023-05-13] MEDS: LABETALOL HCL 200 MG TAB PO SCH (23:00)
[2023-05-14 05:00] VITALS: BP 160/77; PULSE 76; RESP 20; TEMP 98.2; O2SAT 99
[2023-05-14 05:28] LABS: Hemoglobin 8.3 g/dL (13.5-17.5); White Blood Cell 3.9 10^3/uL (4.4-10.8)
[2023-05-14 05:31] LABS: Hematocrit 24.9 % (41.0-53.0); Mean Corpuscular Hemoglobin 32.5 pg (28.0-32.0); Mean Corpuscular Hgb Conc. 33.4 g/dL (32.0-36.0); Mean Corpuscular Volume 97.2 fL (80.0-100.0); Red Blood Cells 2.56 10^6/uL (4.5-5.90); Red Cell Distribution Width 15.6 % (11.8-14.3)
[2023-05-14 05:38] LABS: Band Neutrophils % (manual) 0; Basophils % (manual) 0 (0.0-2.0); Blast Cells 0; Metamyelocytes % 0; Myelocytes % 0; Promyelocytes % 0; Reactive Lymphocytes 0
[2023-05-14 05:44] LABS: Alanine Aminotransferase 21 U/L (7-40); Albumin 3.6 g/dL (3.2-4.8); Alkaline Phosphatase 69 U/L (46-116); Anion Gap 3 (5-15); Aspartate Aminotransferase 9 U/L (13-40); BUN/Creatinine Ratio 2.4 (10.0-20.0); Blood Urea Nitrogen 19 mg/dL (9-23); Calcium 9.2 mg/dL (8.7-10.4); Carbon Dioxide 36 mmol/L (20-30); Chloride 102 mmol/L (98-107); Glucose 92 mg/dL (74-106); Potassium 5.1 mmol/L (3.5-5.1); Sodium 141 mmol/L (136-145)
[2023-05-14 05:45] LABS: Bilirubin, Total 0.7 mg/dL (0.2-1.0); Total Protein 5.7 g/dL (5.7-8.2)
[2023-05-14] MEDS: FERRIC CITRATE 420 MG PO SCH ×2 (06:00→14:00)
[2023-05-14] MEDS: FUROSEMIDE 100 MG/10ML VIAL IV SCH ×2 (06:02→17:24)
[2023-05-14 08:00] VITALS: PULSE 75; RESP 18
[2023-05-14] MEDS: CALCIUM ACETATE 667 MG CAP PO SCH ×3 (08:00→18:00)
[2023-05-14 08:30] VITALS: BP 155/71; PULSE 75; RESP 18; TEMP 97.9; O2SAT 97
[2023-05-14] MEDS: hydrALAZINE HCL 25 MG TAB PO SCH ×3 (08:38→17:25)
[2023-05-14 08:41] LABS: Eosinophils % (manual) 16 (0-7); Lymphocytes % (manual) 22 (10.0-50.0); Monocytes % (manual) 10 (0-12); Platelet Estimate Adequate
[2023-05-14] MEDS: LABETALOL HCL 200 MG TAB PO SCH (11:31)
[2023-05-14] MEDS: NIFEdipine ER 30 MG TAB PO SCH (11:31)
[2023-05-14 17:00] VITALS: BP 164/94; PULSE 74; RESP 18; TEMP 97.7; O2SAT 93
[2023-05-14 17:31] VITALS: BP 155/71; PULSE 71; RESP 18; TEMP 36.6; O2SAT 97
== END 2023-05-14 18:30 | disposition home or self-care (01) | DRG 291 ==
LOC: ER 06:09 → TELE 11:32 → TELE-WESTW 21:47
PROVIDERS: ADMIT Nurse Practitioner Family; ATTEND Internal Medicine
PROC: 5A1D70Z Performance of Urinary Filtration, Intermittent, Less than 6 Hours Per Day (ICD-10-PCS; principal; 2023-05-13)
DX: I13.2 Hypertensive heart and chronic kidney disease with heart failure and with stage 5 chronic kidney disease, or end stage renal disease (principal); I50.33 Acute on chronic diastolic (congestive) heart failure; J96.00 Acute respiratory failure, unspecified whether with hypoxia or hypercapnia; N18.6 End stage renal disease; I16.1 Hypertensive emergency; R55 Syncope and collapse; D63.1 Anemia in chronic kidney disease; Z99.2 Dependence on renal dialysis; Z82.49 Family history of ischemic heart disease and other diseases of the circulatory system; Z86.16 Personal history of COVID-19; Z87.01 Personal history of pneumonia (recurrent)
CPT/HCPCS: 36415; 70450; 71045; 80053; 81001; 83735; 83880; 84484; 85007; 85025; 85027; 85610; 85730; 86850; 86900; 86901; 90935; 93005; 93306; 96374; 96375; 99291; G0378; J2405; J3490

== ENCOUNTER → 2023-06-25 | Outpatient (CLI) | payer MEDICARE, MEDICAID ==
[2023-06-25 10:47] LABS: Aspartate Aminotransferase 13 U/L (13-40); Bilirubin, Total 0.4 mg/dL (0.2-1.0); Total Protein 6.3 g/dL (5.7-8.2)
[2023-06-25 11:05] LABS: Alanine Aminotransferase 45 U/L (7-40); Albumin 4.1 g/dL (3.2-4.8); Alkaline Phosphatase 74 U/L (46-116); Anion Gap 10 (5-15); Calcium 9.6 mg/dL (8.5-10.1); Carbon Dioxide 29 mmol/L (20-30); Chloride 101 mmol/L (98-107); Glucose 85 mg/dL (74-106); Potassium 4.5 mmol/L (3.5-5.1); Sodium 140 mmol/L (136-145)
[2023-06-25 12:45] LABS: INR 1.13 (0.9-1.15); Partial Thromboplastin Time 27.3 SEC (24.5-34.5); Prothrombin Time 11.8 sec (9.3-11.8)
[2023-06-25 15:09] LABS: BUN/Creatinine Ratio 3.8 (10.0-20.0); Blood Urea Nitrogen 33 mg/dL (9-23)
[2023-06-26 08:06] LABS: Hepatitis B Core Total Antibod Negative (Negative)
[2023-06-26 14:06] LABS: Anti-Nuclear Antibody Direct Negative (Negative)
== END | disposition home or self-care (01) ==
LOC: LAB 09:24
DX: K74.69 Other cirrhosis of liver (principal)
CPT/HCPCS: 36415; 80053; 82105; 85007; 85027; 85610; 85730; 86038; 86706; 86708; 86803; 87340

== ENCOUNTER 2023-06-27 21:51 | Emergency (ER) | payer MEDICARE, MEDICAID ==
[~2023-06-27] VITALS: Ht 180.3 cm; Wt 96.2 kg
[2023-06-28 00:21] VITALS: BP 145/81; PULSE 82; RESP 18; TEMP 97.7; O2SAT 94
[2023-06-28 01:15] LABS: Mean Corpuscular Hemoglobin 32.8 pg (28.0-32.0); Mean Corpuscular Hgb Conc. 32.5 g/dL (32.0-36.0)
[2023-06-28 01:17] LABS: Hematocrit 25.1 % (41.0-53.0); Hemoglobin 8.2 g/dL (13.5-17.5); Mean Corpuscular Volume 100.7 fL (80.0-100.0); Red Blood Cells 2.49 10^6/uL (4.5-5.90); Red Cell Distribution Width 17.2 % (11.8-14.3); White Blood Cell 4.1 10^3/uL (4.4-10.8)
[2023-06-28 01:31] LABS: Band Neutrophils % (manual) 0; Basophils % (manual) 0 (0.0-2.0); Blast Cells 0; Metamyelocytes % 0; Myelocytes % 0; Promyelocytes % 0; Reactive Lymphocytes 0
[2023-06-28 01:35] LABS: Alanine Aminotransferase 29 U/L (7-40); Albumin 4.2 g/dL (3.2-4.8); Alkaline Phosphatase 87 U/L (46-116); Anion Gap 10 (5-15); Aspartate Aminotransferase 11 U/L (13-40); BUN/Creatinine Ratio 3.8 (10.0-20.0); Bilirubin, Total 0.4 mg/dL (0.2-1.0); Blood Urea Nitrogen 41 mg/dL (9-23); Calcium 9.3 mg/dL (8.7-10.4); Carbon Dioxide 29 mmol/L (20-30); Chloride 105 mmol/L (98-107); Glucose 91 mg/dL (74-106); Potassium 4.3 mmol/L (3.5-5.1); Sodium 144 mmol/L (136-145); Total Protein 6.4 g/dL (5.7-8.2)
[2023-06-28 02:13] LABS: Anisocytosis Slight; Eosinophils % (manual) 19 (0-7); Lymphocytes % (manual) 19 (10.0-50.0); Macrocytosis Slight; Monocytes % (manual) 9 (0-12); Platelet Estimate Adequate
== END 2023-06-28 03:48 | disposition home or self-care (01) ==
LOC: ER 21:51
DX: D64.9 Anemia, unspecified (principal); R22.0 Localized swelling, mass and lump, head; I13.2 Hypertensive heart and chronic kidney disease with heart failure and with stage 5 chronic kidney disease, or end stage renal disease; N18.6 End stage renal disease; I50.9 Heart failure, unspecified; Z99.2 Dependence on renal dialysis; Z79.899 Other long term (current) drug therapy
CPT/HCPCS: 36415; 70450; 70486; 80053; 85007; 85027

== ENCOUNTER → 2023-08-10 | Outpatient (CLI) | payer MEDICARE, MEDICAID ==
[2023-08-10 11:32] LABS: Basophils # (auto) 0 10 ^3/uL (0-0.2); Eosinophils # (auto) 0.3 10 ^3/uL (0-0.8); Hematocrit 23.6 % (41.0-53.0); Hemoglobin 7.9 g/dL (13.5-17.5); Mean Corpuscular Volume 96.8 fL (80.0-100.0); Monocytes # (auto) 0.3 10 ^3/uL (0-1.3); Neutrophils # (auto) 1.3 10 ^3/uL (1.6-8.6); Red Cell Distribution Width 15.4 % (11.8-14.3); White Blood Cell 2.4 10^3/uL (4.4-10.8)
[2023-08-10 11:34] LABS: Basophils % (auto) 1.1 % (0.0-2.0); Eosinophils % (auto) 12.6 % (0.0-7.0); Lymphocytes # (auto) 0.4 10 ^3/uL (0.4-5.4); Lymphocytes % (auto) 18.6 % (10.0-50.0); Mean Corpuscular Hemoglobin 32.3 pg (28.0-32.0); Mean Corpuscular Hgb Conc. 33.4 g/dL (32.0-36.0); Monocytes % (auto) 13.8 % (0.0-12.0); Neutrophils % (auto) 53.9 % (37.0-80.0); Nucleated Red Blood Cells % 0.1 %; Red Blood Cells 2.43 10^6/uL (4.5-5.90)
[2023-08-10 11:50] LABS: INR 1.11 (0.9-1.15); Partial Thromboplastin Time 26.7 SEC (24.5-34.5); Prothrombin Time 11.6 sec (9.3-11.8)
[2023-08-10 12:24] LABS: Triglycerides 70 mg/dL (< 150)
[2023-08-10 12:25] LABS: LDL Cholesterol 71 mg/dL (< 100)
[2023-08-10 12:26] LABS: Cholesterol 146 mg/dL (< 200); HDL Cholesterol 59 mg/dL (40-59)
[2023-08-10 12:27] LABS: % Iron Saturation 36.5 % (20-55)
[2023-08-10 12:33] LABS: Thyroid Stimulating Hormone 2.39 uIU/mL (0.55-4.78)
[2023-08-10 14:10] LABS: Free T4 (Free Thyroxine) 1.22 ng/dL (0.89-1.76)
[2023-08-10 14:12] LABS: Folate (Folic Acid) 19.27 ng/mL (>5.38)
== END | disposition home or self-care (01) ==
LOC: LAB 10:31
PROVIDERS: ATTEND Internal Medicine
DX: I12.0 Hypertensive chronic kidney disease with stage 5 chronic kidney disease or end stage renal disease (principal); N18.6 End stage renal disease
CPT/HCPCS: 36415; 80061; 82607; 82746; 83540; 83550; 83615; 84439; 84443; 85025; 85610; 85730

== ENCOUNTER → 2023-12-03 | Outpatient (CLI) | payer MEDICARE, MEDICAID ==
[~2023-12-03] MED LIST changes: +LABE200T10 PO; -LABE200T6 PO
== END | disposition home or self-care (01) ==
LOC: XYW 08:51
PROVIDERS: ATTEND Internal Medicine
DX: I07.1 Rheumatic tricuspid insufficiency (principal); I13.2 Hypertensive heart and chronic kidney disease with heart failure and with stage 5 chronic kidney disease, or end stage renal disease; N18.6 End stage renal disease; I50.9 Heart failure, unspecified
CPT/HCPCS: 93306

== ENCOUNTER → 2023-12-17 | Outpatient (CLI) | payer MEDICARE, MEDICAID ==
[2023-12-17 14:17] LABS: Basophils # (auto) 0 10 ^3/uL (0-0.2); Eosinophils # (auto) 0.4 10 ^3/uL (0-0.8); Lymphocytes # (auto) 0.5 10 ^3/uL (0.4-5.4); Mean Corpuscular Hemoglobin 30.7 pg (28.0-32.0); Monocytes # (auto) 0.4 10 ^3/uL (0-1.3); Neutrophils # (auto) 2.3 10 ^3/uL (1.6-8.6); Red Cell Distribution Width 16.8 % (11.8-14.3); White Blood Cell 3.7 10^3/uL (4.4-10.8)
[2023-12-17 14:19] LABS: Hematocrit 22.1 % (41.0-53.0); Hemoglobin 7.2 g/dL (13.5-17.5); Lymphocytes % (auto) 14.1 % (10.0-50.0); Mean Corpuscular Hgb Conc. 32.7 g/dL (32.0-36.0); Mean Corpuscular Volume 93.9 fL (80.0-100.0); Monocytes % (auto) 11.2 % (0.0-12.0); Neutrophils % (auto) 61.7 % (37.0-80.0); Nucleated Red Blood Cells % 0.1 %; Red Blood Cells 2.36 10^6/uL (4.5-5.90)
[2023-12-17 15:24] LABS: Alanine Aminotransferase 28 U/L (7-40); Alkaline Phosphatase 97 U/L (46-116); Anion Gap 4 (5-15); Aspartate Aminotransferase 14 U/L (13-40); BUN/Creatinine Ratio 4.1 (10.0-20.0); Blood Urea Nitrogen 41 mg/dL (9-23); Calcium 9.4 mg/dL (8.7-10.4); Carbon Dioxide 33 mmol/L (20-30); Chloride 106 mmol/L (98-107); Glucose 92 mg/dL (74-106); Sodium 143 mmol/L (136-145)
[2023-12-17 15:26] LABS: Albumin 3.9 g/dL (3.2-4.8); Bilirubin, Total 0.6 mg/dL (0.2-1.0); Total Protein 6.3 g/dL (5.7-8.2)
== END | disposition home or self-care (01) ==
LOC: LAB 14:02
PROVIDERS: ATTEND Internal Medicine
DX: I11.0 Hypertensive heart disease with heart failure (principal); I50.9 Heart failure, unspecified; Z79.899 Other long term (current) drug therapy
CPT/HCPCS: 36415; 80053; 82306; 82728; 83615; 85025; 85045

== ENCOUNTER 2024-11-25 08:24 | Inpatient (IN) | payer MEDICARE, MEDICAID ==
[~2024-11-25] VITALS: Ht 180.3 cm; Wt 93.1 kg
--- NOTE | 2024-11-25 08:30 | ECG ---
[facility] Test Date: 2024-11-25 Test Time: 08:29:41 Pat Name: DEYA KOO Department: ER Room: 0212T Gender: M Metal Polisher: HANSEL : 1975 Requested By: ADITYA SEXTON Order Number: [id number] Reading MD: Fernando Martino Measurements Intervals [place] Rate: 75 P: 49 NV: 137 QRS: 23 QRSD: 100 T: 44 QT: 422 QTc: 472 Interpretive Statements Sinus rhythm Probable left atrial enlargement Left ventricular hypertrophy Baseline wander in lead(s) II Electronically Signed On 11-29-2024 12:09:54 PDT by Fernando Martino Please click the below link to view image of tracing.
[2024-11-25 09:00] VITALS: PULSE 77; RESP 30; O2SAT 96
--- NOTE | 2024-11-25 09:54 | ED.PDOC ---
History of Present Illness HPI Comments 49M presents to the Er w/ prior MHx of CHF, ESRD, HTN, Dialysis for 3 years x Teus,Th, Sat and the c/c of CP. Pt reports on being sick on Wednesday having Cough, Cold, Congestion and having as the pt was at his dialysis appointment today, he stated that he "could not take it" and started to have SOB, CP and a fever in triage of 100.9. Denies chills, fever, N/V/D.No other associated symptoms, modifiers, recent injuries or sick contacts present at this time. Chief Complaint: Chest Pain Time Seen by MD: 09:15 Primary Care Provider: Dr. Thompson Reviewed Notes: Nurses Notes, Medications, Allergies Allergies: Coded Allergies: NO KNOWN ALLERGIES (Unverified , 04/29/22) Home Meds Active Scripts Labetalol HCl (Labetalol HCl) 200 Mg Tab, 200 MG PO BID for 60 Days, #120 TAB Prov:MASON LUNSFORD STEAM PRESS OPERATOR 09/14/22 Clonidine Hcl ([id number] PATCH) 0.2 Mg/24 Hr Ph, 0.2 MG TD Q7D for 60 Days, #8 PATCH Prov:MASON LUNSFORD STEAM PRESS OPERATOR 09/14/22 Acetaminophen (Tylenol) 325 Mg Cap, 325 MG PO Q4HPRN PRN, #30 CAP 0 Refills Take 1-2 caps po q4h prn for pain/fever Prov:YENIFER REES FAMILY SERVICES WORKER 08/18/22 Reported Medications Calcium Acetate (CALCIUM ACETATE) 667 Mg Tab, 667 MG PO AC, TAB 03/18/23 Atorvastatin Calcium (ATORVASTATIN CALCIUM) 40 Mg Tab, 40 MG PO DAILY, TAB 03/18/23 Metoprolol Tartrate (Metoprolol Tartrate) 50 Mg Tab, 50 MG PO BID, TAB 09/12/22 Furosemide (Lasix) 80 Mg Tab, 1 TAB PO BID, #60 TAB 3 Refills 09/12/22 Nifedipine (Nifedipine Er) 60 Mg Tab, 1 TAB PO DAILY, #30 TAB 5 Refills 09/12/22 Hydralazine HCl (Hydralazine Hydrochloride) 100 Mg Tab, 100 MG PO TIDWM, TAB 09/12/22 Ferric Citrate (Auryxia) 210 Mg Tab, 420 MG PO TID, TAB 09/12/22 Information Source: Patient Mode of Arrival: Wheelchair Severity: Moderate Timing: Days Duration: Since onset, Days Prehospital treatment: None Past Medical History PAST MEDICAL HISTORY: CHF, ESRD, HTN Past Medical History (Other): Dialysis x3 years of , , Wednesday Surgical History: Unknown Family History Family History: Reviewed,noncontributory to illness, Unknown, Family hx of HTN Social History Smoker: Non-Smoker Alcohol: Denies ETOH Use Drugs: Denies Drug Use Lives In: Home Constitutional: denies: chills, diaphoresis, fatigue, fever, malaise, sweats, weakness, others EENTM: denies: blurred vision, double vision, ear bleeding, ear discharge, ear drainage, ear pain, ear ringing, eye pain, eye redness, hearing loss, mouth pain , mouth swelling, nasal discharge, nose bleeding, nose congestion, nose pain, photophobia, tearing, throat pain, throat swelling, voice changes, others Respiratory: reports: cough, shortness of breath; denies: hemoptysis, orthopnea, SOB at rest, SOB with excertion, stridor, wheezing, others Cardiovascular: reports: chest pain; denies: dizzy spells, diaphoresis, Dyspnea on exertion, edema, irregular heart beat, left arm pain, lightheadedness, palpitations, PND, syncope, others Gastrointestinal: denies: abdomen distended, abdominal pain, blood streaked bowels, constipated, diarrhea, dysphagia, difficulty swallowing, hematemesis, melena, nausea, poor appetite, poor fluid intake, rectal bleeding, rectal pain, vomiting, others Genitourinary: denies: burning, dysuria, flank pain, frequency, hematuria, incontinence, penile discharge, penile sore, pain, testicle pain, testicle swelling, urgency, others Neurological: denies: dizziness, fainting, headache, left sided numbness, left sided weakness, numbness, paresthesia, pre-existing deficit, right sided numbness, right sided weakness, seizure, speech problems, tingling, tremors, weakness, others Musculoskeletal: denies: back pain, gout, joint pain, joint swelling, muscle pain, muscle stiffness, neck pain, others Integumetry: denies: bruises, change in color, change in hair/nails, dryness, laceration, lesions, lumps, rash, wounds, others Allergic/Immunocompromised: denies: Difficulty Healing, Frequent Infections, Hives, Itching, others Hematologic/Lymphatic: denies: anemia, blood clots, easy bleeding, easy bruising, swollen glands, others Endocrine: denies: excessive hunger, excessive sweating, excessive thirst, excessive urination, flushing, intolerance to cold, intolerance to heat, unexplained weight gain, unexplained weight loss, others Psychiatric: denies: anxiety, bipolar disorder, depression, hopeless, panic disorder, schizophrenia, sleepless, suicidal, others All Other Systems: Reviewed and Negative Physical Exam General Appearance: Moderate Distress, Normal HEENT: Normal ENT Inspection, Pharynx Normal, TMs Normal Neck: Full Range of Motion, Non-Tender, Normal, Normal Inspection Respiratory: Chest Non-Tender, No Accessory Muscle Use, Other (Coarse breath sounds) Cardiovascular: No Edema, No JVD, No Murmur, No Gallop, Normal Peripheral Pulses, Regular Rate/Rhythm Breast Exam: Deferred Gastrointestinal: No Organomegaly, Non Tender, No Pulsatile Mass, Normal Bowel Sounds, Soft Genitalia: Deferred Pelvic: Deferred Rectal: Deferred Extremities: No calf tenderness, Normal capillary refill, Normal inspection, Normal range of motion, Non-tender, No pedal edema Musculoskeletal : Apperance: Normal Neurologic: Alert, concrete polisher II-XII nml as Tested, No Motor Deficits, Normal Affect, Normal Mood, No Sensory Deficits Cerebellar Function: NOT DONE Reflexes: NOT DONE Skin: Dry, Normal Color, Warm Peripheral Pulses: 3+ Radial (R), 3+ Radial (L) Lymphatic: No Adenopathy Was a procedure done? Was a procedure done?: No EKG EKG : Pulse Rate (adult): 75 [place]: Normal Cardiac Rhythm: NSR Block: None Hypertrophy: None ST: Normal Differential Dx Considerations may include: Pneumonitis Electrolyte imbalance X-Ray, Labs, Meds, VS Vital Signs Date Time Temp Pulse Resp B/P (MAP) Pulse Ox O2 Delivery O2 Flow Rate FiO2 11/25/24 11:14 77 172/77 11/25/24 11:13 102.3 11/25/24 09:54 75 11/25/24 09:00 100.9 77 30 188/88 (121) 96 100.9 11/25/24 09:00 77 30 96 Nasal Cannula* 3 32 5/10/25 08:37 101.0 79 24 167/72 (103) 95 101.0 11/25/24 08:29 75 Lab Test 11/25/24 09:27 11/25/24 08:32 Range/Units Troponin I High Sensitivity 32 29 </=54 ng/L White Blood Count 2.4 L 4.4-10.8 10^3/uL Red Blood Count 3.50 L 4.5-5.90 10^6/uL Hemoglobin 11.4 L 13.5-17.5 g/dL Hematocrit 33.5 L 41.0-53.0 % Mean Corpuscular Volume 95.8 80.0-100.0 fL Mean Corpuscular Hemoglobin 32.4 H 28.0-32.0 pg Mean Corpuscular Hemoglobin Concent 33.8 32.0-36.0 g/dL Red Cell Distribution Width 14.5 H 11.8-14.3 % Platelet Count 114 L 140-450 10^3/uL Mean Platelet Volume 8.9 6.9-10.8 fL Neutrophils (%) (Auto) 37.0-80.0 % Lymphocytes (%) (Auto) 10.0-50.0 % Monocytes (%) (Auto) 0.0-12.0 % Basophils (%) (Auto) 0.0-2.0 % Neutrophils # (Auto) 1.6-8.6 10 ^3/uL Lymphocytes # (Auto) 0.4-5.4 10 ^3/uL Monocytes # (Auto) 0-1.3 10 ^3/uL Differential Total Cells Counted 100.0 100 Neutrophils % (Manual) 54 37.0-80.0 Band Neutrophils % (Manual) 7 Lymphocytes % (Manual) 18 10.0-50.0 Monocytes % (Manual) 19 H 0-12 Eosinophils % (Manual) 2 0-7 Basophils % (Manual) 0 0.0-2.0 Metamyelocytes % (manual) 0 Myelocytes % (Manual) 0 Promyelocytes % (Manual) 0 Blast Cells % (Manual) 0 Reactive Lymphocytes 0 Platelet Estimate Decreased Sodium Level 136 136-145 mmol/L Potassium Level 4.0 3.5-5.1 mmol/L Chloride Level 95 L 98-107 mmol/L Carbon Dioxide Level 30 20-31 mmol/L Anion Gap 11 5-15 Blood Urea Nitrogen 20 9-23 mg/dL Creatinine 7.48 H 0.700-1.30 mg/dL Glomerular Filtration Rate Calc 8 >90 mL/min BUN/Creatinine Ratio 2.7 L 10.0-20.0 Serum Glucose 81 74-106 mg/dL Calcium Level 9.8 8.7-10.4 mg/dL Current Medications Medications (Trade) Dose Ordered Sig/J Carlos Route Start Time Stop Time Status Last Admin Acetaminophen (Tylenol Tablet) 650 mg ONCE ONCE PO 11/25/24 11:00 11/25/24 11:01 DC 11/25/24 11:13 Labetalol HCl (Labetalol HCl) 10 mg ONCE ONCE IV 11/25/24 11:00 11/25/24 11:01 DC 11/25/24 11:14 PROCEDURE(s): CXRP - CHEST PORTABLE REASON: sob ORDER NUMBER(s): [id number], ACCESSION NUMBER(s): [id number] CHEST RADIOGRAPH Indication: sob Technique: Single frontal view of the chest was obtained COMPARISON: XY CHEST PORTABLE on DOS: 05/13/23, XY CHEST PORTABLE on DOS: 09/11/22, EKG on DOS: 05/26/22, CXRP on DOS: 05/26/22, CHEST PORTABLE on DOS: 05/26/22 FINDINGS: Lines and Tubes: None Lungs: Pulmonary vascular congestion or viral pneumonia Pleura: No effusion. No pneumothorax. Cardiomediastinal contours: Cardiomegaly Bones: Unremarkable IMPRESSION: Pulmonary vascular congestion or viral pneumonia Patient alert. Came in because of chest discomfort pain Was having dialysis when he started having the symptoms. Completing sentences. Chest x-ray does reveal pneumonia. Reviewed his history. Establish intravenous access. Was given Zosyn. Was given azithromycin. He does have fever. Possible sepsis. Hold the fluids because of his dialysis. Explained to the patient. Continue monitoring. EKG reviewed does not show any acute changes. Blood pressure elevated. He was given labetalol. Time of 1ST Reevaluation: 09:45 Reevaluation 1ST: Unchanged Patient Education/Counseling: Diagnosis, Treatment, Prognosis Family Education/Counseling: No Family Present Sepsis Sepsis Reasesment Focused Exam Sepsis focused exam: focus exam completed (Sepsis protocol) Departure 1 Departure Time of Disposition: :13 Impression: Primary Impression: Sepsis Qualified Codes: A41.9 - Sepsis, unspecified organism Additional Impressions: Pneumonia Qualified Codes: J18.9 - Pneumonia, unspecified organism End stage renal disease on dialysis Anemia of chronic disease Congestive heart failure (CHF) Qualified Codes: I50.43 - Acute on chronic combined systolic (congestive) and diastolic (congestive) heart failure Hypertensive urgency Disposition: ADMITTED INPATIENT Admit to: Med Surg Condition: Guarded Critical Care Note Critical Care Time?: Yes (90 min-critical care time only) Critical care comment: Start antibiotics watch for fluid overload Stability Stability form required: No Heart Score Heart Score: Heart Score Response (Comments) Value History Slightly Suspicious 0 EKG Normal 0 Age 45-64 1 Risk Factors >3 or Hx ASHD 2 Troponin Normal limit 0 Total 3 I personally scribed for ADITYA SEXTON MD ([email or web address]) on 11/25/24 at 09:54. Electronically submitted by Stephan Pulliam ([email or web address]). I personally scribed for ADITYA SEXTON MD ([email or web address]) on 11/25/24 at 10:31. Electronically submitted by Stephan Pulliam ([email or web address]). ADITYA SEXTON MD November 25, 2024 09:54
[2024-11-25 10:12] LABS: Anion Gap 11 (5-15); Calcium 9.8 mg/dL (8.7-10.4); Carbon Dioxide 30 mmol/L (20-31)
[2024-11-25 10:17] LABS: BUN/Creatinine Ratio 2.7 (10.0-20.0); Blood Urea Nitrogen 20 mg/dL (9-23); Glucose 81 mg/dL (74-106); Hematocrit 33.5 % (41.0-53.0); Hemoglobin 11.4 g/dL (13.5-17.5); Mean Corpuscular Hemoglobin 32.4 pg (28.0-32.0); Mean Corpuscular Hgb Conc. 33.8 g/dL (32.0-36.0); Mean Corpuscular Volume 95.8 fL (80.0-100.0); Platelet Count (auto) 114 10^3/uL (140-450); Red Cell Distribution Width 14.5 % (11.8-14.3); White Blood Cell 2.4 10^3/uL (4.4-10.8)
[2024-11-25 10:18] LABS: Chloride 95 mmol/L (98-107); Sodium 136 mmol/L (136-145)
[2024-11-25 10:20] LABS: Basophils % (manual) 0 (0.0-2.0); Blast Cells 0; Metamyelocytes % 0; Myelocytes % 0; Promyelocytes % 0; Reactive Lymphocytes 0
--- NOTE | 2024-11-25 10:23 | DVH ---
CHEST RADIOGRAPH Indication: sob Technique: Single frontal view of the chest was obtained COMPARISON: XY CHEST PORTABLE on DOS: 05/13/23, XY CHEST PORTABLE on DOS: 09/11/22, EKG on DOS: 2, CXRP on DOS: 05/26/22, CHEST PORTABLE on DOS: 05/26/22 FINDINGS: Lines and Tubes: None Lungs: Pulmonary vascular congestion or viral pneumonia Pleura: No effusion. No pneumothorax. Cardiomediastinal contours: Cardiomegaly Bones: Unremarkable IMPRESSION: Pulmonary vascular congestion or viral pneumonia
[2024-11-25 11:03] LABS: Band Neutrophils % (manual) 7; Eosinophils % (manual) 2 (0-7); Lymphocytes % (manual) 18 (10.0-50.0); Monocytes % (manual) 19 (0-12)
[2024-11-25 11:04] LABS: Platelet Estimate Decreased
[2024-11-25] MEDS: ACETAMINOPHEN 325 MG TAB PO ONE (11:13)
[2024-11-25] MEDS: LABETALOL HCL 20 MG/4 ML VL IV ONE (11:14)
[2024-11-25] MEDS: AZITHROMYCIN 500MG/ 250ML 250 ML IV ONE (11:19)
[2024-11-25] MEDS: PIPERACILLIN-TAZOB 3.375GM 100 ML IV ONE (12:37)
[2024-11-25] MEDS ORDERED: CLON0.2D6 TOP (13:29)
[2024-11-25] MEDS ORDERED: TIZA-142 PO (13:29)
[2024-11-25] MEDS ORDERED: B-CO-6 PO (13:29)
[2024-11-25] MEDS ORDERED: ACETAMINOPHEN 325 MG TAB PO PRN (13:30)
[2024-11-25] MEDS ORDERED: MORPHINE SULFATE INJ 2 MG/ml SYRG IV PRN (13:30)
[2024-11-25] MEDS ORDERED: ONDANSETRON HCL 4 MG/2 ML VIAL IV PRN (13:30)
[2024-11-25] MEDS ORDERED: MORPHINE SULFATE 4 MG/ML SYR/VIAL IV PRN (13:30)
[2024-11-25] MEDS ORDERED: NITROGLYCERIN 0.4 MG SL TAB SL PRN ×2 (13:30)
[2024-11-25 13:42] LABS: Magnesium 1.8 mg/dL (1.6-2.6)
--- NOTE | 2024-11-25 13:47 | DVHHP2 ---
History of Present Illness Reason for Visit: Chest pain History of Present Illness Gisel Soto is a 49-year-old male with past medical history of hypertension, COVID, hemorrhoids, left AV fistula, CHF, ESRD on HD (//), pneumonia, colonoscopy, and liver biopsy in 2023 who presents to the ED for chest pain and SOB while at dialysis. Patient reports that he had 3 hours of dialysis this and usually gets 4 hours. He stated that the chest pain was unbearable which is why he is here for evaluation. Patient also endorses a cough that is dry with no productive phlegm. He reports the chest pain 8/10 throbbing and intermittent in nature. He states that there are no triggering or alleviating factors. Patient also reports that he uses oxygen at home p.r.n. up to 3 L via nasal cannula. Patient denies any recent trauma or injury, recent sick contacts, recent travels, recent ingestion of spoiled food, lightheadedness, weakness, dizziness, abdominal pain, nausea, vomiting, diarrhea, fever or chills. Cardiovascular: CHF, HTN Pulmonary: Pneumonia Renal/: Chronic renal failure Past Medical History COVID Hemorrhoids Left upper arm AV fistula Past Surgical History: Other (Colonoscopy and liver biopsy in 2023) Family History: Hypertension, Other (Mom with hypertension) Smoke: No ALCOHOL: none Drugs: None Lives: with Family Domestic Violence: Neg Review of Systems Respiratory: Cough, Shortness of breath Cardiovascular: Chest Pain Allergies: Coded Allergies: NO KNOWN ALLERGIES (Unverified , 04/29/22) Medications Current Medications Medications Dose Ordered Sig/J Carlos Route Start Time Stop Time Status Last Admin Dose Admin Aspirin 81 mg DAILY PO 11/26/24 10:00 UNV Atorvastatin Calcium 40 mg HS PO 11/25/24 22:00 UNV Morphine Sulfate 2 mg Q30MP PRN IV 11/25/24 13:30 UNV Acetaminophen 650 mg Q6HP PRN PO 11/25/24 13:30 UNV Nitroglycerin 0.4 mg Q5MINP PRN SL 11/25/24 13:30 UNV Ondansetron HCl 4 mg Q4HP PRN IV 11/25/24 13:30 UNV Nitroglycerin 0.4 mg Q5MINP PRN SL 11/25/24 13:30 UNV Morphine Sulfate 2 mg Q30M PRN IV 11/25/24 13:30 UNV Exam Vital Signs Vital Signs Date Time Temp Pulse Resp B/P (MAP) Pulse Ox O2 Delivery O2 Flow Rate FiO2 11/25/24 12:34 100.4 100.4 11/25/24 12:30 73 148/77 11/25/24 12:00 16 94 11/25/24 09:00 Nasal Cannula* 3 32 General Appearance: Alert, Oriented X3, Cooperative, No acute distress HEENT: Atraumatic, PERRLA, EOMI, Mucous membr. moist/pink Respiratory: Normal air movement Cardiovascular: Regular rate, Normal S1, Normal S2, No murmurs Abdominal: Normal bowel sounds, Soft, No tenderness Extremities: No clubbing, No cyanosis, No edema, Normal pulses Skin: No significant lesion Neuro: Normal speech, Strength at 5/5 X4 ext, Normal tone, Sensation intact Psych/Mental Status: Mental status NL, Mood NL Labs/Xrays Labs Test 11/25/24 11:30 11/25/24 09:27 11/25/24 08:32 Range/Units Lactic Acid Level 1.1 0.4-2.0 mmol/L Troponin I High Sensitivity 41 </=54 ng/L White Blood Count 2.4 L 4.4-10.8 10^3/uL Red Blood Count 3.50 L 4.5-5.90 10^6/uL Hemoglobin 11.4 L 13.5-17.5 g/dL Hematocrit 33.5 L 41.0-53.0 % Mean Corpuscular Volume 95.8 80.0-100.0 fL Mean Corpuscular Hemoglobin 32.4 H 28.0-32.0 pg Mean Corpuscular Hemoglobin Concent 33.8 32.0-36.0 g/dL Red Cell Distribution Width 14.5 H 11.8-14.3 % Platelet Count 114 L 140-450 10^3/uL Mean Platelet Volume 8.9 6.9-10.8 fL Neutrophils (%) (Auto) 37.0-80.0 % Lymphocytes (%) (Auto) 10.0-50.0 % Monocytes (%) (Auto) 0.0-12.0 % Basophils (%) (Auto) 0.0-2.0 % Neutrophils # (Auto) 1.6-8.6 10 ^3/uL Lymphocytes # (Auto) 0.4-5.4 10 ^3/uL Monocytes # (Auto) 0-1.3 10 ^3/uL Differential Total Cells Counted 100.0 100 Neutrophils % (Manual) 54 37.0-80.0 Band Neutrophils % (Manual) 7 Lymphocytes % (Manual) 18 10.0-50.0 Monocytes % (Manual) 19 H 0-12 Eosinophils % (Manual) 2 0-7 Basophils % (Manual) 0 0.0-2.0 Metamyelocytes % (manual) 0 Myelocytes % (Manual) 0 Promyelocytes % (Manual) 0 Blast Cells % (Manual) 0 Reactive Lymphocytes 0 Platelet Estimate Decreased Sodium Level 136 136-145 mmol/L Potassium Level 4.0 3.5-5.1 mmol/L Chloride Level 95 L 98-107 mmol/L Carbon Dioxide Level 30 20-31 mmol/L Anion Gap 11 5-15 Blood Urea Nitrogen 20 9-23 mg/dL Creatinine 7.48 H 0.700-1.30 mg/dL Glomerular Filtration Rate Calc 8 >90 mL/min BUN/Creatinine Ratio 2.7 L 10.0-20.0 Serum Glucose 81 74-106 mg/dL Calcium Level 9.8 8.7-10.4 mg/dL CHEST RADIOGRAPH Indication: sob Technique: Single frontal view of the chest was obtained COMPARISON: XY CHEST PORTABLE on DOS: 05/13/23, XY CHEST PORTABLE on DOS: 09/11/22, EKG on DOS: 05/26/22, CXRP on DOS: 05/26/22, CHEST PORTABLE on DOS: 05/26/22 FINDINGS: Lines and Tubes: None Lungs: Pulmonary vascular congestion or viral pneumonia Pleura: No effusion. No pneumothorax. Cardiomediastinal contours: Cardiomegaly Bones: Unremarkable IMPRESSION: Pulmonary vascular congestion or viral pneumonia Assessment/Plan Assessment/Plan Assessment Chest pain rule out ACS Hypertensive urgency Pyrexia likely due to pneumonia versus SIRS versus sepsis Pancytopenia ESRD on HD (//) at [facility] Acute on chronic CHF exacerbation Acute hypoxic respiratory failure Left upper arm AV fistula History of COVID History of hemorrhoids History of pneumonia History of oxygen dependence History of colonoscopy History of liver biopsy Plan Admit to tele BNP Chest x-ray noted Supportive oxygen IV antibiotics-azithromycin + Zosyn Beta-blockers Antipyretics Lactic level Blood cultures Manual differential EKG Troponin negative x2 UA Mag level Replete lytes Echo ordered TSH Lipid panel Strict I&Os Daily weights Diuretics UDS A1c Diet Home medications reconciled DVT prophylaxis-not indicated patient ambulating PUD prophylaxis-not indicated history of GERD or GI bleed Discussed plan of care with patient and nurse Nephro consult Plan discussed with: Patient My Orders Orders - MIKEYWINSOME NANCE ADOBE FLEX DEVELOPER Procedure Category Date Status Time *Dr. Elkin Garibay CONS 11/25/24 Transmitted -[place] 13:24 Urinalysis LAB 11/25/24 Logged 13:24 Admit ADMIT 11/25/24 Transmitted 13:24 Code Status CODE 11/25/24 Transmitted 13:24 Vital Signs GERARDO 11/25/24 In Process 13:24 Reservations Agent GERARDO 11/25/24 In Process 13:24 Cardiac DIET 11/25/24 Transmitted Diet-2gna,Lofat,Lochol Lunch Aspirin Tablet PHA 11/26/24 Logged 10:00 Atorvastatin (Lipitor) PHA 11/25/24 Logged 22:00 Morphine Sulfate PHA 11/25/24 Logged Injection 13:30 Acetaminophen Tablet PHA 11/25/24 Logged (Tylenol Tablet) 13:30 Complete Blood Count LAB 11/26/24 Verified 04:00 Basic Metabolic Panel LAB 11/26/24 Verified 04:00 Magnesium LAB 11/26/24 Verified 04:00 Echo 2d Mode Cardiac US 11/25/24 Logged DOP 13:24 Nitroglycerin PHA 11/25/24 Logged Sublingual (Ntrostat 13:30 Ondansetron Hcl PHA 11/25/24 Logged (Zofran) 13:30 Electrocardigram EKG 11/26/24 Logged 04:00 Troponin-I Hs LAB 11/25/24 Logged 13:24 Cardiac GERARDO 11/25/24 In Process Rehabilitation - Outpa Nitroglycerin PHA 11/25/24 Logged Sublingual (Ntrostat 13:30 Morphine Sulfate PHA 11/25/24 Logged Injection 13:30 Stat Ekg For Chest GERARDO 11/25/24 In Process Pain 13:24 Notify Of Changes GERARDO 11/25/24 In Process From Base 13:24 Accelerator Systems Director For GERARDO 11/25/24 In Process 24 Hours 13:24 Emergency Dysrhythmia GERARDO 11/25/24 In Process Protocol 13:24 Rhythm Strips Once GERARDO 11/25/24 In Process Every Shift 13:24 Oxygen By Nasal RT 11/25/24 Transmitted Cannula 13:24 Thyroid Stimulating LAB 11/25/24 Logged Hormone 13:24 Drug Screen LAB 11/25/24 Logged 13:24 Lipid Panel LAB 11/25/24 In Process 13:24 Magnesium LAB 11/25/24 In Process 13:24 Magnesium Sulfate PHA 11/25/24 Logged 1gm/100ml 13:30 Hemoglobin A1c LAB 11/25/24 Logged 13:24 Metoprolol Tartrate PHA 11/25/24 Transmitted Tablet (Lopressor Ta 22:00 (Nf) Atorvastatin PHA 11/26/24 Transmitted Calcium 10:00 (Nf) Calcium Acetate PHA 11/25/24 Transmitted 17:00 (Nf) Ferric Citrate PHA 11/25/24 Transmitted (Auryxia) 14:00 (Nf) Furosemide PHA 11/25/24 Transmitted (Lasix) 22:00 (Nf) Hydralazine Hcl PHA 11/25/24 Transmitted (Hydralazine Hydroc 18:00 (Nf) Nifedipine PHA 11/26/24 Transmitted (Nifedipine Er) 10:00 B-Complex W/ C & PHA 11/26/24 Verified Folic Tablet 10:00 Date of Service: November 25, 2024 Billing Provider: WINSOME COFFEY Common Visit Codes: [id number] INP/OBS CARE (HIGH) WINSOME COFFEY November 25, 2024 13:47
[2024-11-25] MEDS: FERRIC CITRATE 420 MG PO SCH (14:00)
[2024-11-25] MEDS: MAGNESIUM SULFATE 1GM/100ML 100 ML IV ONE (15:14)
[2024-11-25] MEDS ORDERED: CALCIUM ACETATE 667 MG PO SCH (17:00)
[2024-11-25] MEDS: CALCIUM ACETATE 667 MG CAP PO SCH (18:00)
[2024-11-25] MEDS ORDERED: PATIENTS OWN MEDICATION (Hydralazine HCl (Hydralazine Hydrochloride) 100 MG) PO SCH (18:00)
--- NOTE | 2024-11-25 18:03 | DVHSR ---
APPROVED REPORT EXAM: Two-dimensional and M-mode echocardiogram with Doppler and color Doppler. Blood Pressure: 148/77 mmHg INDICATION Chest Pain RISK FACTORS Height: 5'11", Weight: 199 DIMENSIONS LVDd5.0 (3.8-5.7cm)LA (2D)4.6 (1.9-4.0cm)Aortic Root3.5 (2.0-3.7cm) LVDs3.5 (2.5-4.0cm)LA (MM) (1.9-4.0cm)Aortic Cusp Exc2.2 (1.5-2.0cm) EF (%) 60.0 (55-70%)Rt. Atrium4.4 (1.9-4.0cm)Asc. Aorta cm IVSd1.4 (0.7-1.1cm)RV (D) (1.8-2.4cm) PWd1.3 (0.7-1.1cm) Mitral Valve MitralMitral Stenosis E wave0.88m/sMV Mean GR.mmHg A wave0.61m/sMV Peak GR.mmHg E/A ratio1.42D MVAcm2 DECEL [id number] 1/2 Timems Aortic Valve Aortic ValveAortic Stenosis V11.20m/Elo Mean GR.8mmHg V21.91m/Elo Peak GR.15mmHg LVOT Diameter2.1 (1.8-2.4cm)Doppler AVA2.17cm2 Pulmonic Valve V20.98m/s Tricuspid Valve TR Velocity3.58m/s [id number] Conclusion NORMAL LV EF AND IS 65% NORMAL VALVES SLIGHTLY DILATED RV AND RA MODERATE DEGREE PULMONARY HYPERTENSION MODERATELY DILATED IVC RV SP IS 59 MM OF HG AND IS MODERATELY HIGH NO EFFUSION
[2024-11-25] MEDS: FUROSEMIDE 40 MG TAB PO SCH (18:35)
[2024-11-25] MEDS: hydrALAZINE HCL 25 MG TAB PO SCH (18:36)
[2024-11-25 19:14] VITALS: BP 145/68; PULSE 76; RESP 18; TEMP 99.1; O2SAT 96
[2024-11-25 20:00] VITALS: PULSE 79; RESP 18; O2SAT 95
[2024-11-25] MEDS ORDERED: HYDR100T10 PO (20:57)
[2024-11-25 21:00] VITALS: BP 146/67; PULSE 73; RESP 18; TEMP 100.2; O2SAT 96
[2024-11-25 21:10] VITALS: BP 145/68; PULSE 76; RESP 18; TEMP 99.1; O2SAT 96
[2024-11-25] MEDS ORDERED: PATIENTS OWN MEDICATION (Furosemide (Lasix) 1 TAB) PO SCH (22:00)
[2024-11-25] MEDS: ATORVASTATIN 20 MG TAB PO SCH (22:51)
[2024-11-25] MEDS: METOPROLOL TARTRATE 50 MG TAB PO SCH (22:52)
[2024-11-25] MEDS: PIPERACILLIN-TAZOB 3.375GM 100 ML IV SCH (22:53)
[2024-11-26] VITALS (8 sets, daily range): BP systolic 120–192; BP diastolic 62–98; PULSE 65–71; RESP 17–18; TEMP 97.6–99.7; O2SAT 93–98
[2024-11-26] MEDS: hydrALAZINE HCL 20 MG/ML VL IV PRN (06:17)
[2024-11-26 06:27] LABS: Hematocrit 34.3 % (41.0-53.0); Hemoglobin 11.7 g/dL (13.5-17.5); Mean Corpuscular Hemoglobin 32.7 pg (28.0-32.0); Mean Corpuscular Volume 96.1 fL (80.0-100.0); Platelet Count (auto) 104 10^3/uL (140-450); Red Blood Cells 3.57 10^6/uL (4.5-5.90); Red Cell Distribution Width 15.1 % (11.8-14.3); White Blood Cell 2.3 10^3/uL (4.4-10.8)
[2024-11-26 06:36] LABS: Anion Gap 13 (5-15); Calcium 9.4 mg/dL (8.7-10.4); Carbon Dioxide 26 mmol/L (20-31)
[2024-11-26 06:41] LABS: Glucose 82 mg/dL (74-106)
[2024-11-26 06:42] LABS: BUN/Creatinine Ratio 3.5 (10.0-20.0); Magnesium 2.3 mg/dL (1.6-2.6)
[2024-11-26 06:49] LABS: Basophils % (manual) 0 (0.0-2.0); Blast Cells 0; Metamyelocytes % 0; Myelocytes % 0; Promyelocytes % 0; Reactive Lymphocytes 0
[2024-11-26 07:35] LABS: Blood Urea Nitrogen 38 mg/dL (9-23); Chloride 96 mmol/L (98-107); Potassium 5.2 mmol/L (3.5-5.1); Sodium 135 mmol/L (136-145)
[2024-11-26 07:47] LABS: Band Neutrophils % (manual) 12; Eosinophils % (manual) 3 (0-7); Lymphocytes % (manual) 16 (10.0-50.0); Monocytes % (manual) 10 (0-12); Platelet Estimate Decreased
[2024-11-26] MEDS: ASPirin 81 mg TAB PO SCH (09:51)
[2024-11-26] MEDS: B-COMPLEX W/ C & FOLIC ACID(NEPHROVITE TAB) PO SCH (09:51)
[2024-11-26] MEDS: NIFEdipine ER 30 MG TAB PO SCH ×2 (09:52→22:15)
[2024-11-26] MEDS: AZITHROMYCIN 500MG/ 250ML 250 ML IV SCH (09:52)
[2024-11-26] MEDS ORDERED: PATIENTS OWN MEDICATION (Atorvastatin Calcium 40 MG) PO SCH (10:00)
[2024-11-26] MEDS ORDERED: PATIENTS OWN MEDICATION (Nifedipine (Nifedipine Er) 1 TAB) PO SCH (10:00)
--- NOTE | 2024-11-26 11:24 | DVHPN2 ---
Subjective 49-year-old male with a history of end-stage renal disease, hypertension, CHF, came with a fever and chest pain and shortness of breaths while at dialysis He was dialyzed yesterday and during dialysis he could not finish because he had pressure and shortness of breaths and therefore he was sent here He is also complaining of a cough productive of some phlegm chest x-ray shows pulmonary edema versus infiltrate Changes from previous H/P or p: Changes Cardiovascular: Chest Pain Respiratory: Cough, Shortness of breath Objective Vitals Vital Signs Date Time Temp Pulse Resp B/P (MAP) Pulse Ox O2 Delivery O2 Flow Rate FiO2 11/26/24 09:52 181/86 11/26/24 09:51 69 11/26/24 08:10 18 93 Nasal Cannula* 3 32 11/26/24 01:00 99.7 99.7 Intake/Output Intake and Output 11/26/24 07:00 Intake Total 1050 ml Balance 1050 ml Intake Oral 600 ml IV Total 450 ml General Appearance: Alert, Oriented X3, Cooperative Lungs: Other (Diffuse rhonchi) Cardiovascular: Regular rate, Normal S1, Normal S2 Abdomen: Normal bowel sounds, Soft, No tenderness Extremities: No edema Medications Current Medications Medications Dose Ordered Sig/ Jcarlos Route Start Time Stop Time Status Last Admin Dose Admin Aspirin 81 mg DAILY PO 11/26/24 10:00 11/26/24 09:51 81 MG Atorvastatin Calcium 40 mg HS PO 11/25/24 22:00 11/25/24 22:53 40 MG Acetaminophen 650 mg Q6HP PRN PO 11/25/24 13:30 Ondansetron HCl 4 mg Q4HP PRN IV 11/25/24 13:30 Nitroglycerin 0.4 mg Q5MINP PRN SL 11/25/24 13:30 Morphine Sulfate 2 mg Q30M PRN IV 11/25/24 13:30 Metoprolol Tartrate 50 mg BID PO 11/25/24 22:00 11/26/24 09:51 50 MG Patient Own Medication 667 mg AC PO 11/25/24 17:00 UNV Patient Own Medication 420 mg TID PO 11/25/24 14:00 Patient Own Medication 1 tab BID PO 11/25/24 22:00 UNV Patient Own Medication 100 mg TIDWM PO 11/25/24 18:00 UNV Patient Own Medication 1 tab DAILY PO 11/26/24 10:00 UNV Multivit/Ca Carb/ B Cmplx/FA/Prenat 1 tab DAILY PO 11/26/24 10:00 11/26/24 09:51 1 TAB Furosemide 80 mg BIDD PO 11/25/24 18:00 11/26/24 06:06 80 MG Azithromycin 250 ml @ 125 mls/hr DAILY IV 11/26/24 10:00 11/26/24 09:52 125 MLS/HR Piperacillin Sod/ Tazobactam Sod 100 ml @ 25 mls/hr Q12HR IV 11/25/24 22:00 11/26/24 09:52 25 MLS/HR Hydralazine HCl 100 mg TIDWM PO 11/25/24 18:00 11/26/24 08:27 100 MG Calcium Acetate 667 mg TIDWM PO 11/25/24 18:00 11/26/24 08:27 667 MG Hydralazine HCl 10 mg Q6HP PRN IV 11/26/24 00:30 11/26/24 06:17 10 MG Nifedipine 90 mg BID PO 11/26/24 22:00 UNV Laboratory Results Laboratory Tests 11/26/24 05:10 Chemistry Test 11/25/24 11:30 11/26/24 05:10 Magnesium Level 1.8 mg/dL (1.6-2.6) 2.3 mg/dL (1.6-2.6) Calcium Level 9.4 mg/dL (8.7-10.4) Lipid panel Test 11/25/24 11:30 Cholesterol Level 107 mg/dL (< 200) HDL Cholesterol 50 mg/dL (40-59) Triglycerides Level 106 mg/dL (< 150) Microbiology Microbiology Date/Time Source Procedure Growth Status 11/25/24 11:30 Blood Blood Culture - Preliminary Resulted Assessment/Plan Assessment/Plan Chest pain Acute coronary syndrome Hypertensive urgency Pulmonary edema Fever Sepsis Bacteremia with Gram-positive rods End-stage renal disease on hemodialysis Neutropenia Thrombocytopenia Anemia of chronic kidney disease Hypertension History of CHF History of COVID Plan Start broad-spectrum antibiotics with vancomycin and Rocephin and doxycycline Repeat blood cultures Nephrology for dialysis Echocardiogram Cardiology consult Resume the home meds Full code Advance directives discussed for 18 minutes Plan discussed with: Patient My Orders Orders - JENNIFER BACK MD Procedure Category Date Status Time *[facility]. [facility] -Da CONS 11/26/24 Transmitted Herlinda 09:20 Date of Service: November 26, 2024 Billing Provider: JENNIFER BACK MD Common Visit Codes: [id number] INP/OBS CARE(HIGH) Secondary Visit Codes: [id number] CARE PLAN 30 MINUTES JENNIFER BACK MD November 26, 2024 11:24
[2024-11-26] MEDS ORDERED: VANCOMYCIN PER PHARMACY 0 MG IV SCH (11:30)
[2024-11-26] MEDS: VANCOMYCIN 1GM/200ML PM 200 ML IV ONE (12:23)
[2024-11-26] MEDS: NIFEdipine ER 30 MG TAB PO ONE (12:23)
[2024-11-26] MEDS: DOXYCYCLINE 100MG/100ML 100 ML IV SCH (13:40)
--- NOTE | 2024-11-26 15:18 | DVHINCON2 ---
Date of service: November 26, 2024 Referring Physician Salome HUNT Reason for Consultation End-stage renal disease management History of Present Illness 49-year-old patient with significant history of end-stage renal disease on hemodialysis TTS with last dialysis yesterday completed for 3 hours during which he started having chest pain best described as midsternal chest pain five to 7/10 associated with a cough which was initially dry and today it is productive of yellowish sputum he denies otherwise fevers or chills. Other past medical history include hypertension, anemia, secondary hyperparathyroidism, hypoxic respiratory failure occasional use of 3 L via nasal cannula. Patient denies orthopnea PND or leg swelling On admission findings of the labs revealed consistent with end-stage renal disease status, chest x-ray with hazy left lower lobe opacity. Past Medical History End-stage renal disease, hypertension, secondary hyperparathyroidism, anemia Past Surgical History Av fistula creation Allergies: Coded Allergies: Shellfish Allergy (Verified Allergy, Unknown, 11/25/24) Home Meds Active Scripts Labetalol HCl (Labetalol HCl) 200 Mg Tab, 200 MG PO BID for 60 Days, #120 TAB Prov:MASON LUNSFORD CUTTING INSPECTOR 09/14/22 Clonidine Hcl (IKHJATJM-PER-3 PATCH) 0.2 Mg/24 Hr Ph, 0.2 MG TD Q7D for 60 Days, #8 PATCH Prov:MASON LUNSFORD CUTTING INSPECTOR 09/14/22 Acetaminophen (Tylenol) 325 Mg Cap, 325 MG PO Q4HPRN PRN, #30 CAP 0 Refills Take 1-2 caps po q4h prn for pain/fever Prov:YENIFER REES [employer]INE TANK SEPARATOR OPERATOR 08/18/22 Reported Medications Hydralazine Hcl (Hydralazine Hcl) 100 Mg Tab, 1 TAB PO TID 11/25/24 Tizanidine Hydrochloride (Tizanidine Hcl) 4 Mg Tab, 1 TAB PO 11/25/24 B-Complex W/ C & Folic Acid (Deepika-Bakari Rx) Tab, 1 TAB PO DAILY 11/25/24 Clonidine Hydrochloride (Clonidine Hcl) 0.2 Mg/24 Hr Dis, 1 PATCH TOP QWEEKLY 11/25/24 Calcium Acetate (CALCIUM ACETATE) 667 Mg Tab, 667 MG PO AC, TAB 03/18/23 Atorvastatin Calcium (ATORVASTATIN CALCIUM) 40 Mg Tab, 40 MG PO DAILY, TAB 03/18/23 Metoprolol Tartrate (Metoprolol Tartrate) 50 Mg Tab, 50 MG PO BID, TAB 09/12/22 Furosemide (Lasix) 80 Mg Tab, 1 TAB PO BID, #60 TAB 3 Refills 09/12/22 Nifedipine (Nifedipine Er) 60 Mg Tab, 1 TAB PO DAILY, #30 TAB 5 Refills 09/12/22 Hydralazine HCl (Hydralazine Hydrochloride) 100 Mg Tab, 100 MG PO TIDWM, TAB 09/12/22 Ferric Citrate (Auryxia) 210 Mg Tab, 420 MG PO TID, TAB 09/12/22 Current Medications Current Medications Medications (Trade) Dose Ordered Sig/J Carlos Route PRN Reason Start Time Stop Time Status Last Admin Aspirin 81 mg DAILY PO 11/26/24 10:00 11/26/24 09:51 Atorvastatin Calcium (Lipitor) 40 mg HS PO 11/25/24 22:00 11/25/24 22:53 Metoprolol Tartrate (Lopressor Tablet) 50 mg BID PO 11/25/24 22:00 11/26/24 09:51 Patient Own Medication 40 mg DAILY PO 11/26/24 10:00 11/25/24 13:38 DC Patient Own Medication 667 mg AC PO 11/25/24 17:00 UNV Patient Own Medication 1 tab BID PO 11/25/24 22:00 UNV Patient Own Medication 100 mg TIDWM PO 11/25/24 18:00 UNV Patient Own Medication 1 tab DAILY PO 11/26/24 10:00 UNV Multivit/Ca Carb/ B Cmplx/FA/Prenat (Nephro-Bakari Tablet) 1 tab DAILY PO 11/26/24 10:00 11/26/24 09:51 Furosemide (Lasix Tablet) 80 mg BIDD PO 11/25/24 18:00 11/26/24 06:06 Nifedipine (Procardia Xl (Time-Release)) 60 mg DAILY PO 11/26/24 10:00 11/26/24 11:09 DC 11/26/24 09:52 Azithromycin 250 ml @ 125 mls/hr DAILY IV 11/26/24 10:00 11/26/24 11:21 DC 11/26/24 09:52 Piperacillin Sod/ Tazobactam Sod 100 ml @ 25 mls/hr Q12HR IV 11/25/24 22:00 11/26/24 11:21 DC 11/26/24 09:52 Hydralazine HCl (Apresoline Tablet) 100 mg TIDWM PO 11/25/24 18:00 11/26/24 13:45 Calcium Acetate (Phoslo Capsule) 667 mg TIDWM PO 11/25/24 18:00 11/26/24 12:27 Hydralazine HCl (Apresoline Injection) 10 mg Q6HP PRN IV SBP>150 11/26/24 00:30 11/26/24 06:17 Nifedipine (Procardia Xl (Time-Release)) 90 mg BID PO 11/26/24 22:00 Ceftriaxone Sodium 50 ml @ 100 mls/hr DAILY@09 IV 11/27/24 09:00 Vancomycin HCl 0 ml @ 0 mls/hr UD IV 11/26/24 11:30 Doxycycline Hyclate 100 ml @ 50 mls/hr Q12H IV 11/26/24 11:30 11/26/24 13:40 Family History: Hypertension G8 MOTHER Family History Hypertension in the mother Social History He denies smoking alcohol or drug abuse Review of Systems HEENT: Oral mucosa dry Neck no JVD Cardiovascular: denies orthopnea or PND, positive for chest pain. Respiratory: Complains of a cough productive denies shortness of breath. Gastrointestinal: Denies for nausea vomiting Musculoskeletal: Denies myalgias Neurological: Denies focal weakness Dermatological: Denies any rash The rest of the review of systems were reviewed pertinent positives and pertinent negatives are as per HPI up to 12 points review of systems H&P Exam Vital Signs/I&O Vital Sign Date Time Temp Pulse Resp B/P (MAP) Pulse Ox O2 Delivery O2 Flow Rate FiO2 11/26/24 13:45 164/84 11/26/24 10:51 69 11/26/24 08:10 18 93 Nasal Cannula* 3 32 11/26/24 01:00 99.7 99.7 Intake and Output 11/25/24 11/26/24 19:00 07:00 Intake Total 450 ml 600 ml Balance 450 ml 600 ml Intake Oral 600 ml IV Total 450 ml Physical Exam HEENT: No evidence of JVD, no oral ulcers. Pulmonary: Few scattered wheezing and left lower lobe rhonchi on auscultation bilaterally Cardiovascular S1-S2, no S3 or S4 Abdomen: Bowel sounds positive, soft no rebound tenderness Skin: No rash Neurological: Alert, oriented, no focal weakness Labs/Diagnostic Data Labs/Diagnostic Data Laboratory Tests Test 11/26/24 05:10 11/25/24 13:36 11/25/24 11:30 11/25/24 09:27 Range/Units White Blood Count 2.3 L 4.4-10.8 10^3/uL Red Blood Count 3.57 L 4.5-5.90 10^6/uL Hemoglobin 11.7 L 13.5-17.5 g/dL Hematocrit 34.3 L 41.0-53.0 % Mean Corpuscular Volume 96.1 80.0-100.0 fL Mean Corpuscular Hemoglobin 32.7 H 28.0-32.0 pg Mean Corpuscular Hemoglobin Concent 34.0 32.0-36.0 g/dL Red Cell Distribution Width 15.1 H 11.8-14.3 % Platelet Count 104 L 140-450 10^3/uL Mean Platelet Volume 9.0 6.9-10.8 fL Neutrophils (%) (Auto) 37.0-80.0 % Lymphocytes (%) (Auto) 10.0-50.0 % Monocytes (%) (Auto) 0.0-12.0 % Basophils (%) (Auto) 0.0-2.0 % Neutrophils # (Auto) 1.6-8.6 10 ^3/uL Lymphocytes # (Auto) 0.4-5.4 10 ^3/uL Monocytes # (Auto) 0-1.3 10 ^3/uL Differential Total Cells Counted 100.0 100 Neutrophils % (Manual) 59 37.0-80.0 Band Neutrophils % (Manual) 12 Lymphocytes % (Manual) 16 10.0-50.0 Monocytes % (Manual) 10 0-12 Eosinophils % (Manual) 3 0-7 Basophils % (Manual) 0 0.0-2.0 Metamyelocytes % (manual) 0 Myelocytes % (Manual) 0 Promyelocytes % (Manual) 0 Blast Cells % (Manual) 0 Reactive Lymphocytes 0 Platelet Estimate Decreased Sodium Level 135 L 136-145 mmol/L Potassium Level 5.2 H 3.5-5.1 mmol/L Chloride Level 96 L 98-107 mmol/L Carbon Dioxide Level 26 20-31 mmol/L Anion Gap 13 5-15 Blood Urea Nitrogen 38 #H 9-23 mg/dL Creatinine 10.83 #*H 0.700-1.30 mg/dL Glomerular Filtration Rate Calc 5 >90 mL/min BUN/Creatinine Ratio 3.5 L 10.0-20.0 Serum Glucose 82 74-106 mg/dL Calcium Level 9.4 8.7-10.4 mg/dL Magnesium Level 2.3 1.8 1.6-2.6 mg/dL Troponin I High Sensitivity 39 41 32 </=54 ng/L Lactic Acid Level 1.1 0.4-2.0 mmol/L Triglycerides Level 106 < 150 mg/dL Cholesterol Level 107 < 200 mg/dL LDL Cholesterol 34 < 100 mg/dL HDL Cholesterol 50 40-59 mg/dL Thyroid Stimulating Hormone (TSH) 1.85 0.55-4.78 uIU/mL Test 11/25/24 08:32 Range/Units White Blood Count 2.4 L 4.4-10.8 10^3/uL Red Blood Count 3.50 L 4.5-5.90 10^6/uL Hemoglobin 11.4 L 13.5-17.5 g/dL Hematocrit 33.5 L 41.0-53.0 % Mean Corpuscular Volume 95.8 80.0-100.0 fL Mean Corpuscular Hemoglobin 32.4 H 28.0-32.0 pg Mean Corpuscular Hemoglobin Concent 33.8 32.0-36.0 g/dL Red Cell Distribution Width 14.5 H 11.8-14.3 % Platelet Count 114 L 140-450 10^3/uL Mean Platelet Volume 8.9 6.9-10.8 fL Neutrophils (%) (Auto) 37.0-80.0 % Lymphocytes (%) (Auto) 10.0-50.0 % Monocytes (%) (Auto) 0.0-12.0 % Basophils (%) (Auto) 0.0-2.0 % Neutrophils # (Auto) 1.6-8.6 10 ^3/uL Lymphocytes # (Auto) 0.4-5.4 10 ^3/uL Monocytes # (Auto) 0-1.3 10 ^3/uL Differential Total Cells Counted 100.0 100 Neutrophils % (Manual) 54 37.0-80.0 Band Neutrophils % (Manual) 7 Lymphocytes % (Manual) 18 10.0-50.0 Monocytes % (Manual) 19 H 0-12 Eosinophils % (Manual) 2 0-7 Basophils % (Manual) 0 0.0-2.0 Metamyelocytes % (manual) 0 Myelocytes % (Manual) 0 Promyelocytes % (Manual) 0 Blast Cells % (Manual) 0 Reactive Lymphocytes 0 Platelet Estimate Decreased Sodium Level 136 136-145 mmol/L Potassium Level 4.0 3.5-5.1 mmol/L Chloride Level 95 L 98-107 mmol/L Carbon Dioxide Level 30 20-31 mmol/L Anion Gap 11 5-15 Blood Urea Nitrogen 20 9-23 mg/dL Creatinine 7.48 H 0.700-1.30 mg/dL Glomerular Filtration Rate Calc 8 >90 mL/min BUN/Creatinine Ratio 2.7 L 10.0-20.0 Serum Glucose 81 74-106 mg/dL Hemoglobin A1c 4.4 <5.7 % A1C Calcium Level 9.8 8.7-10.4 mg/dL Troponin I High Sensitivity 29 </=54 ng/L B-Type Natriuretic Peptide 707.49 0-100 pg/mL Microbiology Date/Time Source Procedure Growth Status 11/26/24 00:43 Nose MRSA Screen - Final Complete 11/25/24 11:30 Blood Blood Culture - Final Complete Chest x-ray shows left lower lobe haziness Assessment Assessment: 1. End-stage renal disease on hemodialysis TTS via AV graft 2. Left lower lobe pneumonia 3. Chest pain, atypical 4. Pulmonary hypertension, moderate 5. Chronic anemia of end-stage renal disease 6. Secondary hyperparathyroidism 7. Hypertension Plan: Continue dialysis TTS unless otherwise specified. Continue antihypertensive meds optimize Rocephin and doxycycline currently on follow cultures Bronchodilator therapy p.r.n. Mucolytic The resume phosphate binders Fluid restriction Less than 1 L per day bassem for goal hemoglobin 10-11. Cardiology consult Thank you very much for allowing us to participate in the care of this patient please contact if you have any questions. Plan discussed with: Patient DEVENDRA COBIAN MD November 26, 2024 15:18
[2024-11-27] VITALS (12 sets, daily range): BP systolic 131–163; BP diastolic 64–70; PULSE 59–92; RESP 17–20; TEMP 97.9–98.4; O2SAT 91–98
[2024-11-27 06:09] LABS: Basophils # (auto) 0 10 ^3/uL (0-0.2); Basophils % (auto) 0.6 % (0.0-2.0); Eosinophils # (auto) 0.2 10 ^3/uL (0-0.8); Eosinophils % (auto) 9.9 % (0.0-7.0); Hematocrit 31.6 % (41.0-53.0); Hemoglobin 10.7 g/dL (13.5-17.5); Lymphocytes # (auto) 0.6 10 ^3/uL (0.4-5.4); Lymphocytes % (auto) 24.2 % (10.0-50.0); Mean Corpuscular Hemoglobin 32.6 pg (28.0-32.0); Mean Corpuscular Hgb Conc. 33.9 g/dL (32.0-36.0); Mean Corpuscular Volume 95.9 fL (80.0-100.0); Monocytes # (auto) 0.3 10 ^3/uL (0-1.3); Monocytes % (auto) 10.9 % (0.0-12.0); Neutrophils # (auto) 1.3 10 ^3/uL (1.6-8.6); Neutrophils % (auto) 54.4 % (37.0-80.0); Nucleated Red Blood Cells % 0.3 %; Platelet Count (auto) 108 10^3/uL (140-450); Red Cell Distribution Width 14.5 % (11.8-14.3); White Blood Cell 2.4 10^3/uL (4.4-10.8)
[2024-11-27 06:24] LABS: Alanine Aminotransferase 14 U/L (7-40); Alkaline Phosphatase 94 U/L (46-116); Anion Gap 16 (5-15); Aspartate Aminotransferase 18 U/L (13-40); Bilirubin, Total 0.6 mg/dL (0.2-1.0); Calcium 8.7 mg/dL (8.7-10.4); Carbon Dioxide 24 mmol/L (20-31); Glucose 87 mg/dL (74-106); Magnesium 2.4 mg/dL (1.6-2.6); Total Protein 6.3 g/dL (5.7-8.2)
[2024-11-27 06:27] LABS: Blood Urea Nitrogen 58 mg/dL (9-23); Chloride 95 mmol/L (98-107); Potassium 5.2 mmol/L (3.5-5.1); Sodium 135 mmol/L (136-145)
--- NOTE | 2024-11-27 08:03 | DVHPN2 ---
Progress Note - Dictate Date Seen: November 27, 2024 Has the PT tested + for MRSA If YES, has PT been informed?: No Medical Necessity Reason Pt with a Central, PICC or Fol: No Subjective No new complaints vital signs Vital Sign Date Time Temp Pulse Resp B/P (MAP) Pulse Ox O2 Delivery O2 Flow Rate FiO2 11/27/24 06:18 131/68 11/27/24 05:00 98.3 68 18 92 98.3 11/26/24 20:00 Nasal Cannula* 3 32 Total Intake and Output 11/26/24 11/26/24 11/27/24 15:00 23:00 07:00 Intake Total 287.5 ml 998 ml 300 ml Output Total 1780 ml Balance 287.5 ml -782 ml 300 ml medications Current Medications Medications Dose Ordered Sig/J Carlos Route Start Time Stop Time Status Last Admin Dose Admin Aspirin 81 mg DAILY PO 11/26/24 10:00 11/26/24 09:51 81 MG Atorvastatin Calcium 40 mg HS PO 11/25/24 22:00 11/26/24 22:13 40 MG Acetaminophen 650 mg Q6HP PRN PO 11/25/24 13:30 Ondansetron HCl 4 mg Q4HP PRN IV 11/25/24 13:30 Nitroglycerin 0.4 mg Q5MINP PRN SL 11/25/24 13:30 Morphine Sulfate 2 mg Q30M PRN IV 11/25/24 13:30 Metoprolol Tartrate 50 mg BID PO 11/25/24 22:00 11/26/24 22:14 50 MG Patient Own Medication 667 mg AC PO 11/25/24 17:00 UNV Patient Own Medication 420 mg TID PO 11/25/24 14:00 Patient Own Medication 1 tab BID PO 11/25/24 22:00 UNV Patient Own Medication 100 mg TIDWM PO 11/25/24 18:00 UNV Patient Own Medication 1 tab DAILY PO 11/26/24 10:00 UNV Multivit/Ca Carb/ B Cmplx/FA/Prenat 1 tab DAILY PO 11/26/24 10:00 11/26/24 09:51 1 TAB Furosemide 80 mg BIDD PO 11/25/24 18:00 11/27/24 06:18 80 MG Hydralazine HCl 100 mg TIDWM PO 11/25/24 18:00 11/26/24 13:45 100 MG Calcium Acetate 667 mg TIDWM PO 11/25/24 18:00 11/26/24 18:14 667 MG Hydralazine HCl 10 mg Q6HP PRN IV 11/26/24 00:30 11/26/24 06:17 10 MG Nifedipine 90 mg BID PO 11/26/24 22:00 11/26/24 22:15 90 MG Ceftriaxone Sodium 50 ml @ 100 mls/hr DAILY@09 IV 11/27/24 09:00 Vancomycin HCl 0 ml @ 0 mls/hr UD IV 11/26/24 11:30 Doxycycline Hyclate 100 ml @ 50 mls/hr Q12H IV 11/26/24 11:30 11/26/24 22:12 50 MLS/HR objective Alert and oriented x 3 NAD Lungs: basilar rales CV: RR, S4 gallop. no pericardial rub Abdomen: soft, NT No leg edema laboratory and microbiology Laboratory Tests 11/27/24 05:35 Test 11/27/24 05:35 Range/Units Serum Glucose 87 74-106 mg/dL Problem List 1, End-stage renal disease on hemodialysis TTS via AV graft 2. Left lower lobe pneumonia 3. Chest pain, atypical 4. Pulmonary hypertension, moderate 5. Chronic anemia of end-stage renal disease 6. Secondary hyperparathyroidism 7. Hypertension Plan: hd tomorrow TTS Continue antihypertensive medications Rocephin and doxycycline currently on follow cultures Bronchodilator therapy p.r.n. Fluid restriction < 1 L per day Plan discussed with: Other JULISA PRINCE MD November 27, 2024 08:03
[2024-11-27] MEDS: cefTRIAXone 1GM/50ML D5W 50 ML IV SCH (09:26)
[2024-11-27 11:27] LABS: Urine Bacteria None Seen /hpf (None Seen)
[2024-11-27 11:46] LABS: Urine Blood Negative /uL (Negative); Urine Clarity Clear (Clear); Urine Color Light-Yellow (Yellow); Urine Protein, UAD 2+ (Negative); Urine Specific Gravity 1.007 (1.001-1.035); Urine Squamous Epithelial Cell FEW /hpf (<5); Urine Urobilinogen Normal (Negative); Urine WBC 1 /HPF (0-3)
[2024-11-27 11:55] LABS: Amphetamine Screen, Urine Neg (NEGATIVE); Barbiturate Scree,Urine Neg (NEGATIVE); Benzodiazephine Screen, Urine Neg (NEGATIVE); Cannabinoid Screen, Urine Neg (NEGATIVE); Cocaine Screen, Urine Neg (NEGATIVE); Opiate Scree,Urine Neg (NEGATIVE); Phencyclidine Screen, Urine Neg (NEGATIVE)
--- NOTE | 2024-11-27 14:10 | DVHPN2 ---
Subjective Seen and examined at bedside, patient known to me from outpatient clinic. Patient is on 3-4Liters of oxygen now. Cont Abx for possible Pneumonia. Changes from previous H/P or p: No Changes Cardiovascular: Chest Pain Respiratory: Cough, Shortness of breath Objective Vitals Vital Signs Date Time Temp Pulse Resp B/P (MAP) Pulse Ox O2 Delivery O2 Flow Rate FiO2 11/27/24 09:28 67 132/64 11/27/24 09:00 97.9 20 91 97.9 11/27/24 08:10 Nasal Cannula* 3 32 Intake/Output Intake and Output 11/27/24 06:59 Intake Total 1585.5 ml Output Total 1780 ml Balance -194.5 ml Intake Oral 998 ml IV Total 587.5 ml Output Urine Total 1780 ml # Bowel Movements 1 General Appearance: Alert, Oriented X3, Cooperative Lungs: Other (Diffuse rhonchi) Cardiovascular: Regular rate, Normal S1, Normal S2 Abdomen: Normal bowel sounds, Soft, No tenderness Extremities: No edema, Other (Left Arm Fistula) Medications Current Medications Medications Dose Ordered Sig/J Carlos Route Start Time Stop Time Status Last Admin Dose Admin Aspirin 81 mg DAILY PO 11/26/24 10:00 11/27/24 09:27 81 MG Atorvastatin Calcium 40 mg HS PO 11/25/24 22:00 11/26/24 22:13 40 MG Acetaminophen 650 mg Q6HP PRN PO 11/25/24 13:30 Ondansetron HCl 4 mg Q4HP PRN IV 11/25/24 13:30 Nitroglycerin 0.4 mg Q5MINP PRN SL 11/25/24 13:30 Morphine Sulfate 2 mg Q30M PRN IV 11/25/24 13:30 Metoprolol Tartrate 50 mg BID PO 11/25/24 22:00 11/26/24 22:14 50 MG Patient Own Medication 667 mg AC PO 11/25/24 17:00 UNV Patient Own Medication 420 mg TID PO 11/25/24 14:00 Patient Own Medication 1 tab BID PO 11/25/24 22:00 UNV Patient Own Medication 100 mg TIDWM PO 11/25/24 18:00 UNV Patient Own Medication 1 tab DAILY PO 11/26/24 10:00 UNV Multivit/Ca Carb/ B Cmplx/FA/Prenat 1 tab DAILY PO 11/26/24 10:00 11/27/24 09:27 1 TAB Furosemide 80 mg BIDD PO 11/25/24 18:00 11/27/24 06:18 80 MG Hydralazine HCl 100 mg TIDWM PO 11/25/24 18:00 11/27/24 08:25 100 MG Calcium Acetate 667 mg TIDWM PO 11/25/24 18:00 11/27/24 12:04 667 MG Hydralazine HCl 10 mg Q6HP PRN IV 11/26/24 00:30 11/26/24 06:17 10 MG Nifedipine 90 mg BID PO 11/26/24 22:00 11/27/24 09:27 90 MG Ceftriaxone Sodium 50 ml @ 100 mls/hr DAILY@09 IV 11/27/24 09:00 11/27/24 09:26 100 MLS/HR Vancomycin HCl 0 ml @ 0 mls/hr UD IV 11/26/24 11:30 Doxycycline Hyclate 100 ml @ 50 mls/hr Q12H IV 11/26/24 11:30 11/27/24 12:04 50 MLS/HR Laboratory Results Laboratory Tests 11/27/24 05:35 Chemistry Test 11/27/24 05:35 Albumin 4.0 g/dL (3.2-4.8) Calcium Level 8.7 mg/dL (8.7-10.4) Magnesium Level 2.4 mg/dL (1.6-2.6) Total Protein 6.3 g/dL (5.7-8.2) LFT Test 11/27/24 05:35 Alanine Aminotransferase (ALT) 14 U/L (7-40) Alkaline Phosphatase 94 U/L (46-116) Aspartate Amino Transferase (AST) 18 U/L (13-40) Total Bilirubin 0.6 mg/dL (0.2-1.0) Urinalysis Test 11/25/24 11:20 Urine Color Light-yellow (Yellow) Urine Clarity Clear (Clear) Urine pH 8.0 (5.0-9.0) Urine Specific [place] 1.007 (1.001-1.035) Urine Protein 2+ (Negative) H Urine Ketones Negative (Negative) Urine Blood Negative /uL (Negative) Urine Nitrite Negative (Negative) Urine Bilirubin Negative (Negative) Urine Urobilinogen Normal mg/dL (Negative) Urine Leukocyte Esterase Negative /uL (Negative) Urine RBC <1 /hpf (0 - 3) Urine Microscopic WBC 1 /HPF (0-3) Urine Squamous Epithelial Cells Few /hpf (<5) Urine Bacteria None seen /hpf (None Seen) Urine Glucose 1+ mg/dL (Normal) H Microbiology Microbiology Date/Time Source Procedure Growth Status 11/26/24 12:07 Blood Blood Culture - Preliminary NO GROWTH AFTER 24 HOURS OF INCUBATION. Resulted 11/26/24 00:43 Nose MRSA Screen - Final Complete Assessment/Plan Assessment/Plan # ESRD on HD- Cont HD # Acute Pneumonitis- Rocephin and Doxy # Bacteremia ruled out # Chest Pain- Cardio Cx, ECHO done # Acute on Chronic Resp Failure- Titrate Oxygen down # Pulm Edema # Goals of care discussion >18 mins FULL CODE Plan discussed with: Patient My Orders Orders - DAVE GARCIAS MD Procedure Category Date Status Time * Cardiology Consult CONS 11/27/24 Transmitted 12:29 Nifedipine Er PHA 11/28/24 Logged (Procardia Xl 10:00 Doxycycline Tablet PHA 11/27/24 Logged (Vibramycin Tablet) 22:00 Date of Service: November 27, 2024 Billing Provider: DAVE GARCIAS MD Common Visit Codes: [id number] INP/OBS CARE(HIGH) Secondary Visit Codes: [id number] CARE PLAN 30 MINUTES DAVE GARCIAS MD November 27, 2024 14:10
--- NOTE | 2024-11-27 15:03 | DVHINCON2 ---
Date Seen: November 27, 2024 Referring Physician MD Donna Reason for Consultation Chest pain and SOB History of Present Illness This is a 49-year-old man who presented to the emergency room with a chief complaint of chest pain. The patient reports he was undergoing a hemodialysis treatment at the onset of symptoms. Describes his chest pain as substernal, nonradiating, unprovoked, throbbing in nature, and endorses his symptoms to a possible recent cold with an associated cough. At time of assessment the patient denied any further chest pain. He underwent a 12 lead electrocardiogram revealing a normal sinus rhythm suggestive of left ventricular hypertrophy. Serial troponin levels are negative. Significant medical history includes hypertension, dyslipidemia, chronic respiratory failure with O2 dependence at 3 LPM, and end-stage renal disease on hemodialysis on . Past Medical History Past medical history reviewed. No other significant than mentioned above. Past Surgical History Left upper arm AV fistula Family History: Hypertension G8 MOTHER Family History Family history reviewed. Social History Denies the use of illicit drugs, alcohol, or tobacco use. Allergies: Coded Allergies: Shellfish Allergy (Verified Allergy, Unknown, 11/25/24) Home Meds Active Scripts Labetalol HCl (Labetalol HCl) 200 Mg Tab, 200 MG PO BID for 60 Days, #120 TAB Prov:MASON LUNSFORD EVP [employer]ATEGY 09/14/22 Clonidine Hcl ([id number]-JBU-4 PATCH) 0.2 Mg/24 Hr Ph, 0.2 MG TD Q7D for 60 Days, #8 PATCH Prov:MASON LUNSFORD [employer]P STRATEGY 09/14/22 Acetaminophen (Tylenol) 325 Mg Cap, 325 MG PO Q4HPRN PRN, #30 CAP 0 Refills Take 1-2 caps po q4h prn for pain/fever Prov:YENIFER REES GOLF PROFESSIONAL 08/18/22 Reported Medications Hydralazine Hcl (Hydralazine Hcl) 100 Mg Tab, 1 TAB PO TID 11/25/24 Tizanidine Hydrochloride (Tizanidine Hcl) 4 Mg Tab, 1 TAB PO 11/25/24 B-Complex W/ C & Folic Acid (Deepika-Bakari Rx) Tab, 1 TAB PO DAILY 11/25/24 Clonidine Hydrochloride (Clonidine Hcl) 0.2 Mg/24 Hr Dis, 1 PATCH TOP QWEEKLY 11/25/24 Calcium Acetate (CALCIUM ACETATE) 667 Mg Tab, 667 MG PO AC, TAB 03/18/23 Atorvastatin Calcium (ATORVASTATIN CALCIUM) 40 Mg Tab, 40 MG PO DAILY, TAB 03/18/23 Metoprolol Tartrate (Metoprolol Tartrate) 50 Mg Tab, 50 MG PO BID, TAB 09/12/22 Furosemide (Lasix) 80 Mg Tab, 1 TAB PO BID, #60 TAB 3 Refills 09/12/22 Nifedipine (Nifedipine Er) 60 Mg Tab, 1 TAB PO DAILY, #30 TAB 5 Refills 09/12/22 Hydralazine HCl (Hydralazine Hydrochloride) 100 Mg Tab, 100 MG PO TIDWM, TAB 09/12/22 Ferric Citrate (Auryxia) 210 Mg Tab, 420 MG PO TID, TAB 09/12/22 Home Meds Home medications reviewed. Current Medications Current Medications Medications (Trade) Dose Ordered Sig/J Carlos Route PRN Reason Start Time Stop Time Status Last Admin Nifedipine (Procardia Xl (Time-Release)) 90 mg BID PO 11/26/24 22:00 11/27/24 13:55 DC 11/27/24 09:27 Ceftriaxone Sodium 50 ml @ 100 mls/hr DAILY@09 IV 11/27/24 09:00 11/27/24 09:26 Nifedipine (Procardia Xl (Time-Release)) 90 mg DAILY PO 11/28/24 10:00 UNV Doxycycline Monohydrate (Vibramycin Tablet) 100 mg Q12HR PO 11/27/24 22:00 UNV Albuterol (Ventolin Medneb) 2.5 mg Q6HWA NEB 11/27/24 18:00 UNV Ipratropium [place] (Atrovent Medneb) 0.5 mg Q6HPRN PRN NEB SHORTNESS OF BREATH 11/27/24 14:15 UNV Review of Systems Constitutional: No symptom reported Ears, Nose, & Throat: No symptom reported Eyes: No symptom reported Neurological: No symptoms reported Pulmonary/Respiratory: No symptom reported Cardiovascular: Chest pain Gastrointestinal: No symptom reported Genitourinary: No symptom reported Musculoskeletal: No symptom reported Skin: No symptom reported Psychiatric: No symptom reported Endocrine: No symptom reported Hemotologic/Lymphatic: No symptom reported Vital Signs Vital Signs Date Time Temp Pulse Resp B/P (MAP) Pulse Ox O2 Delivery O2 Flow Rate FiO2 11/27/24 14:42 97.9 68 18 132/64 98 3.0 32 97.9 11/27/24 08:10 Nasal Cannula* Physical Exam General Appearance: Cooperative. Well developed. Well nourished. In no acute distress Head Exam: Normal inspection Neck Exam: Normal inspection. Non-tender. Normal alignment Pulmonary/Respiratory: Chest non-tender. Crackles to right breath sounds Cardiovascular/Chest: Regular rate and rhythm. S1, S2. NSR suggestive of LVH. No murmurs. No JVD. Peripheral Pulses: 2+ Radial (R). 2+ Radial (L). 2+ Pedal (R). 2+ Pedal (L) Abdominal Exam: Normal bowel sounds. Soft. Nontender. No hepatospenomegaly. No masses Ankle Exam: Negative ankle edema Lower extremities: Negative lower extremity edema Neuro/Mental Status: A&O x4. Coherent Thoughts/Psych: Normal thought pattern. Appropriate mood and affect. Good judgement and insight Appearance: In no acute distress Skin Exam: Normal inspection. Normal color. Warm. Dry Labs/Diagnostic Data Labs Test 11/27/24 05:35 11/26/24 05:10 11/25/24 13:36 11/25/24 11:30 Range/Units White Blood Count 2.4 L 4.4-10.8 10^3/uL Red Blood Count 3.30 L 4.5-5.90 10^6/uL Hemoglobin 10.7 L 13.5-17.5 g/dL Hematocrit 31.6 L 41.0-53.0 % Mean Corpuscular Volume 95.9 80.0-100.0 fL Mean Corpuscular Hemoglobin 32.6 H 28.0-32.0 pg Mean Corpuscular Hemoglobin Concent 33.9 32.0-36.0 g/dL Red Cell Distribution Width 14.5 H 11.8-14.3 % Platelet Count 108 L 140-450 10^3/uL Mean Platelet Volume 9.8 6.9-10.8 fL Neutrophils (%) (Auto) 54.4 37.0-80.0 % Lymphocytes (%) (Auto) 24.2 10.0-50.0 % Monocytes (%) (Auto) 10.9 0.0-12.0 % Eosinophils (%) (Auto) 9.9 H 0.0-7.0 % Basophils (%) (Auto) 0.6 0.0-2.0 % Neutrophils # (Auto) 1.3 L 1.6-8.6 10 ^3/uL Lymphocytes # (Auto) 0.6 0.4-5.4 10 ^3/uL Monocytes # (Auto) 0.3 0-1.3 10 ^3/uL Eosinophils # (Auto) 0.2 0-0.8 10 ^3/uL Basophils # (Auto) 0 0-0.2 10 ^3/uL Nucleated Red Blood Cells 0.3 % Sodium Level 135 L 136-145 mmol/L Potassium Level 5.2 H 3.5-5.1 mmol/L Chloride Level 95 L 98-107 mmol/L Carbon Dioxide Level 24 20-31 mmol/L Anion Gap 16 H 5-15 Blood Urea Nitrogen 58 #H 9-23 mg/dL Creatinine 14.33 #*H 0.700-1.30 mg/dL Glomerular Filtration Rate Calc 4 >90 mL/min BUN/Creatinine Ratio 4.0 L 10.0-20.0 Serum Glucose 87 74-106 mg/dL Calcium Level 8.7 8.7-10.4 mg/dL Magnesium Level 2.4 1.6-2.6 mg/dL Total Bilirubin 0.6 0.2-1.0 mg/dL Aspartate Amino Transferase (AST) 18 13-40 U/L Alanine Aminotransferase (ALT) 14 7-40 U/L Alkaline Phosphatase 94 46-116 U/L Total Protein 6.3 5.7-8.2 g/dL Albumin 4.0 3.2-4.8 g/dL Random Vancomycin Level 17.8 H 5-10 ug/mL Differential Total Cells Counted 100.0 100 Neutrophils % (Manual) 59 37.0-80.0 Band Neutrophils % (Manual) 12 Lymphocytes % (Manual) 16 10.0-50.0 Monocytes % (Manual) 10 0-12 Eosinophils % (Manual) 3 0-7 Basophils % (Manual) 0 0.0-2.0 Metamyelocytes % (manual) 0 Myelocytes % (Manual) 0 Promyelocytes % (Manual) 0 Blast Cells % (Manual) 0 Reactive Lymphocytes 0 Platelet Estimate Decreased Troponin I High Sensitivity 39 </=54 ng/L Lactic Acid Level 1.1 0.4-2.0 mmol/L Triglycerides Level 106 < 150 mg/dL Cholesterol Level 107 < 200 mg/dL LDL Cholesterol 34 < 100 mg/dL HDL Cholesterol 50 40-59 mg/dL Test 11/25/24 11:20 11/25/24 09:27 11/25/24 08:32 Range/Units Urine Color Light-yellow Yellow Urine Clarity Clear Clear Urine pH 8.0 5.0-9.0 Urine Specific [place] 1.007 1.001-1.035 Urine Protein 2+ H Negative Urine Ketones Negative Negative Urine Blood Negative Negative /uL Urine Nitrite Negative Negative Urine Bilirubin Negative Negative Urine Urobilinogen Normal Negative mg/dL Urine Leukocyte Esterase Negative Negative /uL Urine RBC <1 0 - 3 /hpf Urine Microscopic WBC 1 0-3 /HPF Urine Squamous Epithelial Cells Few <5 /hpf Urine Bacteria None seen None Seen /hpf Urine Glucose 1+ H Normal mg/dL Urine Opiates Screen Neg NEGATIVE Urine Fentanyl Screen Neg NEGATIVE Urine Barbiturates Screen Neg NEGATIVE Urine Phencyclidine Screen Neg NEGATIVE Urine Amphetamines Screen Neg NEGATIVE Urine Benzodiazepines Screen Neg NEGATIVE Urine Cocaine Screen Neg NEGATIVE Urine Cannabinoids Screen Neg NEGATIVE Thyroid Stimulating Hormone (TSH) 1.85 0.55-4.78 uIU/mL Hemoglobin A1c 4.4 <5.7 % A1C B-Type Natriuretic Peptide 707.49 0-100 pg/mL Microbiology Date/Time Source Procedure Growth Status 11/26/24 12:07 Blood Blood Culture - Preliminary NO GROWTH AFTER 24 HOURS OF INCUBATION. Resulted 11/26/24 00:43 Nose MRSA Screen - Final Complete Assessment Chest pain rule out coronary artery disease Pulmonary hypertension, likely Group III, moderate degree Chronic respiratory failure with O2 dependence Hypertensive urgency Dyslipidemia ESRD on HD Plan/Recommendation (Dr. Castillo) Case discussed with Dr. Castillo. The patient underwent a transthoracic echocardiogram revealing an LVEF of 65% with moderate pulmonary hypertension. We will continue further cardiac evaluation with a Cardiolite stress test to rule out coronary ischemia. In the meantime, continue single antiplatelet therapy, lipid lowering agent, and aggressive blood pressure control. DVT/VTE prophylaxis. Thank you for allowing us to participate in this patient's care. Please call if you have any questions or concerns. This medical document was created using an electronic medical record system with voice recognition software and computerized dictation system. Although this document has been carefully reviewed, there might still be some phonetic and typographical errors. Occasional wrong-word or ``sound-alike substitutions may have occurred due to the inherent limitations of voice recognition software. These areas are purely typographical due to imperfections of the software programs and do not reflect any compromise in the patient's medical care. Please read the chart carefully and recognize, using context, where these substitutions have occurred. Plan discussed with: Patient, Other [place]HA Physical activity limitations: NA Date of Service: November 27, 2024 Billing Provider: LUX HUNT Cardiology Common Codes: [id number] INP/OBS CARE (High) LUX HUNT November 27, 2024 15:03
[2024-11-27] MEDS: ALBUTEROL SULF 2.5 MG/0.5ML(0.5%) NEB SOLN NEB SCH (18:37)
[2024-11-27] MEDS: IPRATROPIUM BROM 0.5 MG/2.5ML INH SOL NEB PRN (18:37)
[2024-11-27] MEDS: DOXYCYCLINE 100 MG TAB/CAP PO SCH (21:12)
[2024-11-27] MEDS: HEPARIN SODIUM (PORCINE) 5000 UNITS/ML 1ML VIAL SC SCH (21:15)
[2024-11-28] VITALS (16 sets, daily range): BP systolic 123–229; BP diastolic 70–96; PULSE 60–73; RESP 16–20; TEMP 98.1–98.5; O2SAT 90–100
[2024-11-28] MEDS: SODIUM CHL 0.9% 1000 ML BAG XX ONE (07:00)
[2024-11-28] MEDS: NIFEdipine ER 30 MG TAB PO SCH (09:57)
--- NOTE | 2024-11-28 10:41 | DVHPN2 ---
Progress Note - Dictate Date Seen: November 28, 2024 Has the PT tested + for MRSA If YES, has PT been informed?: No Medical Necessity Reason Pt with a Central, PICC or Fol: No Subjective No new complaints vital signs Vital Sign Date Time Temp Pulse Resp B/P (MAP) Pulse Ox O2 Delivery O2 Flow Rate FiO2 11/28/24 09:58 65 164/73 11/28/24 09:00 98.5 20 91 98.5 11/28/24 06:32 Nasal Cannula 3.0 11/28/24 06:32 32 Total Intake and Output 11/27/24 11/27/24 11/28/24 14:59 22:59 06:59 Intake Total 50 ml 560 ml 250 ml Output Total 325 ml Balance 50 ml 560 ml -75 ml medications Current Medications Medications Dose Ordered Sig/J Carlos Route Start Time Stop Time Status Last Admin Dose Admin Aspirin 81 mg DAILY PO 11/26/24 10:00 11/28/24 09:56 81 MG Atorvastatin Calcium 40 mg HS PO 11/25/24 22:00 11/27/24 21:11 40 MG Acetaminophen 650 mg Q6HP PRN PO 11/25/24 13:30 Ondansetron HCl 4 mg Q4HP PRN IV 11/25/24 13:30 Nitroglycerin 0.4 mg Q5MINP PRN SL 11/25/24 13:30 Morphine Sulfate 2 mg Q30M PRN IV 11/25/24 13:30 Metoprolol Tartrate 50 mg BID PO 11/25/24 22:00 11/28/24 09:58 50 MG Patient Own Medication 667 mg AC PO 11/25/24 17:00 UNV Patient Own Medication 420 mg TID PO 11/25/24 14:00 Patient Own Medication 1 tab BID PO 11/25/24 22:00 UNV Patient Own Medication 100 mg TIDWM PO 11/25/24 18:00 UNV Patient Own Medication 1 tab DAILY PO 11/26/24 10:00 UNV Multivit/Ca Carb/ B Cmplx/FA/Prenat 1 tab DAILY PO 11/26/24 10:00 11/28/24 09:56 1 TAB Furosemide 80 mg BIDD PO 11/25/24 18:00 11/28/24 05:25 80 MG Hydralazine HCl 100 mg TIDWM PO 11/25/24 18:00 11/28/24 09:56 100 MG Calcium Acetate 667 mg TIDWM PO 11/25/24 18:00 11/27/24 18:15 667 MG Hydralazine HCl 10 mg Q6HP PRN IV 11/26/24 00:30 11/26/24 06:17 10 MG Ceftriaxone Sodium 50 ml @ 100 mls/hr DAILY@09 IV 11/27/24 09:00 11/28/24 09:56 100 MLS/HR Nifedipine 90 mg DAILY PO 11/28/24 10:00 11/28/24 09:57 90 MG Doxycycline Monohydrate 100 mg Q12HR PO 11/27/24 22:00 11/28/24 09:57 100 MG Albuterol 2.5 mg Q6HWA NEB 11/27/24 18:00 11/28/24 06:31 2.5 MG Ipratropium [place] 0.5 mg Q6HPRN PRN NEB 11/27/24 14:15 11/28/24 06:32 0.5 MG Heparin Sodium (Porcine) 5,000 units Q12HR SC 11/27/24 22:00 11/28/24 10:10 5,000 UNITS objective Alert and oriented x 3 NAD Lungs: basilar rales CV: RR, S4 gallop. no pericardial rub Abdomen: soft, NT No leg edema laboratory and microbiology Laboratory Tests 11/27/24 05:35 Test 11/27/24 05:35 Range/Units Serum Glucose 87 74-106 mg/dL Problem List 1, End-stage renal disease on hemodialysis TTS via AV graft 2. Left lower lobe pneumonia 3. Chest pain, atypical 4. Pulmonary hypertension, moderate 5. Chronic anemia of end-stage renal disease 6. Secondary hyperparathyroidism 7. Hypertension Plan: Patient is on the schedule for HD today Continue antihypertensive medications Rocephin and doxycycline, follow cultures Bronchodilator therapy p.r.n. Fluid restriction < 1 L per day DC planning Plan discussed with: JULISA Agarwal MD November 28, 2024 10:41
--- NOTE | 2024-11-28 11:14 | DVHPN2 ---
Consult Progress Note Date Seen: November 28, 2024 Subjective Review of Systems: CVS:Normal, RESPIRATORY:Normal, NEURO:Normal Other Systems: Denies any cardiac symptoms Objective vital signs Vital Sign Date Time Temp Pulse Resp B/P (MAP) Pulse Ox O2 Delivery O2 Flow Rate FiO2 11/28/24 09:58 65 164/73 11/28/24 09:00 98.5 20 91 98.5 11/28/24 06:32 Nasal Cannula 3.0 11/28/24 06:32 32 Total Intake and Output 11/27/24 11/27/24 11/28/24 15:00 23:00 07:00 Intake Total 50 ml 560 ml 250 ml Output Total 325 ml Balance 50 ml 560 ml -75 ml medications Current Medications Medications Dose Ordered Sig/J Carlos Route Start Time Stop Time Status Last Admin Dose Admin Aspirin 81 mg DAILY PO 11/26/24 10:00 11/28/24 09:56 81 MG Atorvastatin Calcium 40 mg HS PO 11/25/24 22:00 11/27/24 21:11 40 MG Acetaminophen 650 mg Q6HP PRN PO 11/25/24 13:30 Ondansetron HCl 4 mg Q4HP PRN IV 11/25/24 13:30 Nitroglycerin 0.4 mg Q5MINP PRN SL 11/25/24 13:30 Morphine Sulfate 2 mg Q30M PRN IV 11/25/24 13:30 Metoprolol Tartrate 50 mg BID PO 11/25/24 22:00 11/28/24 09:58 50 MG Patient Own Medication 667 mg AC PO 11/25/24 17:00 UNV Patient Own Medication 420 mg TID PO 11/25/24 14:00 Patient Own Medication 1 tab BID PO 11/25/24 22:00 UNV Patient Own Medication 100 mg TIDWM PO 11/25/24 18:00 UNV Patient Own Medication 1 tab DAILY PO 11/26/24 10:00 UNV Multivit/Ca Carb/ B Cmplx/FA/Prenat 1 tab DAILY PO 11/26/24 10:00 11/28/24 09:56 1 TAB Furosemide 80 mg BIDD PO 11/25/24 18:00 11/28/24 05:25 80 MG Hydralazine HCl 100 mg TIDWM PO 11/25/24 18:00 11/28/24 09:56 100 MG Calcium Acetate 667 mg TIDWM PO 11/25/24 18:00 11/27/24 18:15 667 MG Hydralazine HCl 10 mg Q6HP PRN IV 11/26/24 00:30 11/26/24 06:17 10 MG Ceftriaxone Sodium 50 ml @ 100 mls/hr DAILY@09 IV 11/27/24 09:00 11/28/24 09:56 100 MLS/HR Nifedipine 90 mg DAILY PO 11/28/24 10:00 11/28/24 09:57 90 MG Doxycycline Monohydrate 100 mg Q12HR PO 11/27/24 22:00 11/28/24 09:57 100 MG Albuterol 2.5 mg Q6HWA NEB 11/27/24 18:00 11/28/24 06:31 2.5 MG Ipratropium [place] 0.5 mg Q6HPRN PRN NEB 11/27/24 14:15 11/28/24 06:32 0.5 MG Heparin Sodium (Porcine) 5,000 units Q12HR SC 11/27/24 22:00 11/28/24 10:10 5,000 UNITS Examination: LUNGS:Normal, CVS:Normal, NEURO:Normal laboratory and microbiology Laboratory Tests 11/27/24 05:35 Test 11/27/24 05:35 Range/Units Serum Glucose 87 74-106 mg/dL Problem List/Assessment/Plan Problem List/Assessment/Plan Chest pain rule out coronary artery disease Pulmonary hypertension, likely Group III, moderate degree Chronic respiratory failure with O2 dependence Hypertensive urgency Dyslipidemia ESRD on HD Plan/Recommendation (Dr. Castillo) The patient underwent a transthoracic echocardiogram revealing an LVEF of 65% with moderate pulmonary hypertension. We will continue further cardiac evaluation with a Cardiolite stress test to rule out coronary ischemia. The patient declined stress test today as he prefers to undergo hemodialysis treatment first. We will reschedule for 11/29/2024. In the meantime, continue single-antiplatelet therapy, lipid lowering agent, and aggressive blood pressure control. DVT/VTE prophylaxis. Thank you for allowing us to participate in this patient's care. Please call if you have any questions or concerns. This medical document was created using an electronic medical record system with voice recognition software and computerized dictation system. Although this document has been carefully reviewed, there might still be some phonetic and typographical errors. Occasional wrong-word or ``sound-alike substitutions may have occurred due to the inherent limitations of voice recognition software. These areas are purely typographical due to imperfections of the software programs and do not reflect any compromise in the patient's medical care. Please read the chart carefully and recognize, using context, where these substitutions have occurred. Plan discussed with: Patient, Other Date of Service: November 28, 2024 Billing Provider: LUX HUNT Cardiology Common Codes: [id number] INP/OBS CARE(Mod) LUX HUNT November 28, 2024 11:14
--- NOTE | 2024-11-28 17:30 | DVHPN2 ---
Subjective Seen and examined at bedside, for stress test tomorrow. Changes from previous H/P or p: No Changes Cardiovascular: Chest Pain Respiratory: Cough, Shortness of breath Objective Vitals Vital Signs Date Time Temp Pulse Resp B/P (MAP) Pulse Ox O2 Delivery O2 Flow Rate FiO2 11/28/24 13:00 98.2 63 19 158/73 (101) 94 98.2 11/28/24 11:12 Nasal Cannula* 3 32 Intake/Output Intake and Output 11/28/24 07:00 Intake Total 860 ml Output Total 325 ml Balance 535 ml Intake Oral 710 ml IV Total 150 ml Output Urine Total 325 ml # Voids 1 # Bowel Movements 2 General Appearance: Alert, Oriented X3, Cooperative Lungs: Other (Diffuse rhonchi) Cardiovascular: Regular rate, Normal S1, Normal S2 Abdomen: Normal bowel sounds, Soft, No tenderness Extremities: No edema, Other (Left Arm Fistula) Medications Current Medications Medications Dose Ordered Sig/J Carlos Route Start Time Stop Time Status Last Admin Dose Admin Aspirin 81 mg DAILY PO 11/26/24 10:00 11/28/24 09:56 81 MG Atorvastatin Calcium 40 mg HS PO 11/25/24 22:00 11/27/24 21:11 40 MG Acetaminophen 650 mg Q6HP PRN PO 11/25/24 13:30 Ondansetron HCl 4 mg Q4HP PRN IV 11/25/24 13:30 Nitroglycerin 0.4 mg Q5MINP PRN SL 11/25/24 13:30 Morphine Sulfate 2 mg Q30M PRN IV 11/25/24 13:30 Metoprolol Tartrate 50 mg BID PO 11/25/24 22:00 11/28/24 09:58 50 MG Patient Own Medication 667 mg AC PO 11/25/24 17:00 UNV Patient Own Medication 420 mg TID PO 11/25/24 14:00 Patient Own Medication 1 tab BID PO 11/25/24 22:00 UNV Patient Own Medication 100 mg TIDWM PO 11/25/24 18:00 UNV Patient Own Medication 1 tab DAILY PO 11/26/24 10:00 UNV Multivit/Ca Carb/ B Cmplx/FA/Prenat 1 tab DAILY PO 11/26/24 10:00 11/28/24 09:56 1 TAB Furosemide 80 mg BIDD PO 11/25/24 18:00 11/28/24 05:25 80 MG Hydralazine HCl 100 mg TIDWM PO 11/25/24 18:00 11/28/24 12:00 100 MG Calcium Acetate 667 mg TIDWM PO 11/25/24 18:00 11/27/24 18:15 667 MG Hydralazine HCl 10 mg Q6HP PRN IV 11/26/24 00:30 11/26/24 06:17 10 MG Ceftriaxone Sodium 50 ml @ 100 mls/hr DAILY@09 IV 11/27/24 09:00 11/28/24 09:56 100 MLS/HR Nifedipine 90 mg DAILY PO 11/28/24 10:00 11/28/24 09:57 90 MG Doxycycline Monohydrate 100 mg Q12HR PO 11/27/24 22:00 11/28/24 09:57 100 MG Albuterol 2.5 mg Q6HWA NEB 11/27/24 18:00 11/28/24 11:12 2.5 MG Ipratropium [place] 0.5 mg Q6HPRN PRN NEB 11/27/24 14:15 11/28/24 11:12 0.5 MG Heparin Sodium (Porcine) 5,000 units Q12HR SC 11/27/24 22:00 11/28/24 10:10 5,000 UNITS Laboratory Results Laboratory Tests 11/27/24 05:35 Urinalysis Test 11/25/24 11:20 Urine Color Light-yellow (Yellow) Urine Clarity Clear (Clear) Urine pH 8.0 (5.0-9.0) Urine Specific [place] 1.007 (1.001-1.035) Urine Protein 2+ (Negative) H Urine Ketones Negative (Negative) Urine Blood Negative /uL (Negative) Urine Nitrite Negative (Negative) Urine Bilirubin Negative (Negative) Urine Urobilinogen Normal mg/dL (Negative) Urine Leukocyte Esterase Negative /uL (Negative) Urine RBC <1 /hpf (0 - 3) Urine Microscopic WBC 1 /HPF (0-3) Urine Squamous Epithelial Cells Few /hpf (<5) Urine Bacteria None seen /hpf (None Seen) Urine Glucose 1+ mg/dL (Normal) H Microbiology Microbiology Date/Time Source Procedure Growth Status 11/26/24 12:07 Blood Blood Culture - Preliminary NO GROWTH AFTER 48 HOURS OF INCUBATION. Resulted 11/26/24 00:43 Nose MRSA Screen - Final Complete Assessment/Plan Assessment/Plan # ESRD on HD- Cont HD # Acute Pneumonitis- Rocephin and Doxy # Bacteremia ruled out # Chest Pain- Cardio Cx, ECHO done, Stress test tomorrow # Acute on Chronic Resp Failure- Titrate Oxygen down # Pulm Edema # Goals of care discussion >18 mins FULL CODE Plan discussed with: Patient Date of Service: November 28, 2024 Billing Provider: DAVE GARCIAS MD Common Visit Codes: [id number] INP/OBS CARE(HIGH) DAVE GARCIAS MD November 28, 2024 17:30
[2024-11-29] VITALS (15 sets, daily range): BP systolic 139–204; BP diastolic 77–95; PULSE 53–68; RESP 16–20; TEMP 36.6; O2SAT 95–100
--- NOTE | 2024-11-29 09:47 | DVHPN2 ---
Progress Note - Dictate Date Seen: November 29, 2024 Has the PT tested + for MRSA If YES, has PT been informed?: No Medical Necessity Reason Pt with a Central, PICC or Fol: No Subjective Feels better vital signs Vital Sign Date Time Temp Pulse Resp B/P (MAP) Pulse Ox O2 Delivery O2 Flow Rate FiO2 11/29/24 09:00 97.8 68 18 198/88 (124) 96 97.8 11/29/24 07:44 Nasal Cannula* 3 32 Total Intake and Output 11/28/24 11/28/24 11/29/24 15:00 23:00 07:00 Intake Total 50 ml 360 ml 240 ml Output Total 50 ml Balance 50 ml 360 ml 190 ml medications Current Medications Medications Dose Ordered Sig/J Carlos Route Start Time Stop Time Status Last Admin Dose Admin Aspirin 81 mg DAILY PO 11/26/24 10:00 11/29/24 08:14 81 MG Atorvastatin Calcium 40 mg HS PO 11/25/24 22:00 11/28/24 21:35 40 MG Acetaminophen 650 mg Q6HP PRN PO 11/25/24 13:30 Ondansetron HCl 4 mg Q4HP PRN IV 11/25/24 13:30 Nitroglycerin 0.4 mg Q5MINP PRN SL 11/25/24 13:30 Morphine Sulfate 2 mg Q30M PRN IV 11/25/24 13:30 Metoprolol Tartrate 50 mg BID PO 11/25/24 22:00 11/29/24 08:13 50 MG Patient Own Medication 667 mg AC PO 11/25/24 17:00 UNV Patient Own Medication 420 mg TID PO 11/25/24 14:00 Patient Own Medication 1 tab BID PO 11/25/24 22:00 UNV Patient Own Medication 100 mg TIDWM PO 11/25/24 18:00 UNV Patient Own Medication 1 tab DAILY PO 11/26/24 10:00 UNV Multivit/Ca Carb/ B Cmplx/FA/Prenat 1 tab DAILY PO 11/26/24 10:00 11/29/24 08:14 1 TAB Furosemide 80 mg BIDD PO 11/25/24 18:00 11/28/24 18:22 80 MG Hydralazine HCl 100 mg TIDWM PO 11/25/24 18:00 11/29/24 08:13 100 MG Calcium Acetate 667 mg TIDWM PO 11/25/24 18:00 11/28/24 18:21 667 MG Hydralazine HCl 10 mg Q6HP PRN IV 11/26/24 00:30 11/29/24 02:46 10 MG Ceftriaxone Sodium 50 ml @ 100 mls/hr DAILY@09 IV 11/27/24 09:00 11/29/24 08:12 100 MLS/HR Nifedipine 90 mg DAILY PO 11/28/24 10:00 11/29/24 08:13 90 MG Doxycycline Monohydrate 100 mg Q12HR PO 11/27/24 22:00 11/29/24 08:14 100 MG Albuterol 2.5 mg Q6HWA NEB 11/27/24 18:00 11/29/24 05:29 2.5 MG Ipratropium [place] 0.5 mg Q6HPRN PRN NEB 11/27/24 14:15 11/29/24 05:29 0.5 MG Heparin Sodium (Porcine) 5,000 units Q12HR SC 11/27/24 22:00 11/29/24 08:23 5,000 UNITS objective Alert and oriented x 3 NAD Lungs: basilar rales CV: RR, S4 gallop. no pericardial rub Abdomen: soft, NT No leg edema laboratory and microbiology Laboratory Tests 11/27/24 05:35 Test 11/27/24 05:35 Range/Units Serum Glucose 87 74-106 mg/dL Problem List 1, End-stage renal disease on hemodialysis TTS via AV graft 2. Left lower lobe pneumonia, improved 3. Chest pain, atypical 4. Pulmonary hypertension, moderate 5. Chronic anemia of end-stage renal disease 6. Secondary hyperparathyroidism 7. Hypertension Plan: Continue antihypertensive medications Rocephin and doxycycline, follow cultures Bronchodilator therapy p.r.n. Fluid restriction < 1 L per day DC to outpatient HD today Dietary Evaluation Review Comments: renal standard diet. D/C lipitor d/t low LDL and Low total cholesterol. monitor PO intake to meet 75% of his needs Expected Outcomes/Goals: no wt loss. Plan discussed with: Patient JULISA PRINCE MD November 29, 2024 09:47
[2024-11-29] MEDS: REGADENOSON 0.4 MG/5 ML SYRG IV ONE ×2 (10:05→10:10)
[2024-11-29] MEDS: hydrALAZINE HCL 25 MG TAB PO ONE (10:43)
[2024-11-29] MEDS: cloNIDine HCL 0.1 MG TAB PO ONE (10:57)
[2024-11-29] MEDS ORDERED: DOX100T PO (13:39)
--- NOTE | 2024-11-29 16:19 | DVHSR ---
APPROVED REPORT Exam: Nuclear Stress Test BMI: 0 Stress Test Details HR Max Heart Rate (APMHR): 173.256157 bpm Target HR (85% APMHR): 147.966484 bpm BP ECG Stress ECG Conclusion lvef 46% dilated LV no severe ischemia noted NM EXAM: Myocardial Perfusion REST/STRESS Imaging Protocol: Rest Tc-99m/Stress Tc-99m 1 day Resting Data Rest SPECT myocardial perfusion imaging was performed in supine position 60 minutes following the int ravenous injection of 12.0 mCi of Tc-99m Sestamibi. Time of rest injection: 07:40 Date: 11/29/2024 Time of rest imagin:40 Date: 11/29/2024 Administration Route: IV Administration Site: Right Arm Pharmacologic Stress Pharmacologic stress test was performed by injecting Regadenoson 0.4 mg IV push followed by the intra venous injection of 33.7 mCi of Tc-99m Sestamibi. Time of stress injection: 10:11 Date: 11/29/2024 Time of stress imagin:11 Date: 11/29/2024 Administration Route: IV Administration Site: Right Arm Gated Stress SPECT was performed 60 minutes after stress injection. The images were gated to evaluate regional wall motion and calculate left ventricular ejection fracti on. Stress only was performed in the position. Nuclear Conclusion lvef 46% dilated LV no severe ischemia noted
--- NOTE | 2024-11-29 17:53 | DVHDS2 ---
Discharge Summary Date of Admission November 25, 2024 at 13:24 Date of Discharge: November 29, 2024 Admitting Diagnosis ESRD on HD Labs/Diagnostic Data: Laboratory Results Test 11/27/24 05:35 11/26/24 05:10 11/25/24 13:36 11/25/24 11:30 White Blood Count 2.4 10^3/uL (4.4-10.8) Red Blood Count 3.30 10^6/uL (4.5-5.90) Hemoglobin 10.7 g/dL (13.5-17.5) Hematocrit 31.6 % (41.0-53.0) Mean Corpuscular Volume 95.9 fL (80.0-100.0) Mean Corpuscular Hemoglobin 32.6 pg (28.0-32.0) Mean Corpuscular Hemoglobin Concent 33.9 g/dL (32.0-36.0) Red Cell Distribution Width 14.5 % (11.8-14.3) Platelet Count 108 10^3/uL (140-450) Mean Platelet Volume 9.8 fL (6.9-10.8) Neutrophils (%) (Auto) 54.4 % (37.0-80.0) Lymphocytes (%) (Auto) 24.2 % (10.0-50.0) Monocytes (%) (Auto) 10.9 % (0.0-12.0) Eosinophils (%) (Auto) 9.9 % (0.0-7.0) Basophils (%) (Auto) 0.6 % (0.0-2.0) Neutrophils # (Auto) 1.3 10 ^3/uL (1.6-8.6) Lymphocytes # (Auto) 0.6 10 ^3/uL (0.4-5.4) Monocytes # (Auto) 0.3 10 ^3/uL (0-1.3) Eosinophils # (Auto) 0.2 10 ^3/uL (0-0.8) Basophils # (Auto) 0 10 ^3/uL (0-0.2) Nucleated Red Blood Cells 0.3 % Sodium Level 135 mmol/L (136-145) Potassium Level 5.2 mmol/L (3.5-5.1) Chloride Level 95 mmol/L (98-107) Carbon Dioxide Level 24 mmol/L (20-31) Anion Gap 16 (5-15) Blood Urea Nitrogen 58 mg/dL (9-23) Creatinine 14.33 mg/dL (0.700-1.30) Glomerular Filtration Rate Calc 4 mL/min (>90) BUN/Creatinine Ratio 4.0 (10.0-20.0) Serum Glucose 87 mg/dL (74-106) Calcium Level 8.7 mg/dL (8.7-10.4) Magnesium Level 2.4 mg/dL (1.6-2.6) Total Bilirubin 0.6 mg/dL (0.2-1.0) Aspartate Amino Transferase (AST) 18 U/L (13-40) Alanine Aminotransferase (ALT) 14 U/L (7-40) Alkaline Phosphatase 94 U/L (46-116) Total Protein 6.3 g/dL (5.7-8.2) Albumin 4.0 g/dL (3.2-4.8) Random Vancomycin Level 17.8 ug/mL (5-10) Differential Total Cells Counted 100.0 (100) Neutrophils % (Manual) 59 (37.0-80.0) Band Neutrophils % (Manual) 12 Lymphocytes % (Manual) 16 (10.0-50.0) Monocytes % (Manual) 10 (0-12) Eosinophils % (Manual) 3 (0-7) Basophils % (Manual) 0 (0.0-2.0) Metamyelocytes % (manual) 0 Myelocytes % (Manual) 0 Promyelocytes % (Manual) 0 Blast Cells % (Manual) 0 Reactive Lymphocytes 0 Platelet Estimate Decreased Troponin I High Sensitivity 39 ng/L (</=54) Lactic Acid Level 1.1 mmol/L (0.4-2.0) Triglycerides Level 106 mg/dL (< 150) Cholesterol Level 107 mg/dL (< 200) LDL Cholesterol 34 mg/dL (< 100) HDL Cholesterol 50 mg/dL (40-59) Test 11/25/24 11:20 11/25/24 09:27 11/25/24 08:32 Urine Color Light-yellow (Yellow) Urine Clarity Clear (Clear) Urine pH 8.0 (5.0-9.0) Urine Specific [place] 1.007 (1.001-1.035) Urine Protein 2+ (Negative) Urine Ketones Negative (Negative) Urine Blood Negative /uL (Negative) Urine Nitrite Negative (Negative) Urine Bilirubin Negative (Negative) Urine Urobilinogen Normal mg/dL (Negative) Urine Leukocyte Esterase Negative /uL (Negative) Urine RBC <1 /hpf (0 - 3) Urine Microscopic WBC 1 /HPF (0-3) Urine Squamous Epithelial Cells Few /hpf (<5) Urine Bacteria None seen /hpf (None Seen) Urine Glucose 1+ mg/dL (Normal) Urine Opiates Screen Neg (NEGATIVE) Urine Fentanyl Screen Neg (NEGATIVE) Urine Barbiturates Screen Neg (NEGATIVE) Urine Phencyclidine Screen Neg (NEGATIVE) Urine Amphetamines Screen Neg (NEGATIVE) Urine Benzodiazepines Screen Neg (NEGATIVE) Urine Cocaine Screen Neg (NEGATIVE) Urine Cannabinoids Screen Neg (NEGATIVE) Thyroid Stimulating Hormone (TSH) 1.85 uIU/mL (0.55-4.78) Hemoglobin A1c 4.4 % A1C (<5.7) B-Type Natriuretic Peptide 707.49 pg/mL (0-100) Other Laboratory Tests 11/27/24 05:35 Brief Hx & Hospital Course: Gisel Soto is a 49-year-old male with past medical history of hypertension, COVID, hemorrhoids, left AV fistula, CHF, ESRD on HD (//), who presented to the ED for chest pain and SOB while at dialysis. Patient reports that he had 3 hours of dialysis this and usually gets 4 hours. He stated that the chest pain was unbearable which is why he is here for evaluation. Patient also endorses a cough that is dry with no productive phlegm. He reports the chest pain 8/10 throbbing and intermittent in nature. Patient was treated with Doxy and underwent NM Stress Test which was negative. Patient will be discharged home to followup with me in the clinic on Wednesday 11AM. Operations or Procedures Exam: Nuclear Stress Test BMI: 0 Stress Test Details HR Max Heart Rate (APMHR): 173.677029 bpm Target HR (85% APMHR): 147.260054 bpm BP ECG Stress ECG Conclusion lvef 46% dilated LV no severe ischemia noted NM EXAM: Myocardial Perfusion REST/STRESS Imaging Protocol: Rest Tc-99m/Stress Tc-99m 1 day Resting Data Rest SPECT myocardial perfusion imaging was performed in supine position 60 minutes following the intravenous injection of 12.0 mCi of Tc-99m Sestamibi. Time of rest injection: 07:40 Date: 11/29/2024 Time of rest imagin:40 Date: 11/29/2024 Administration Route: IV Administration Site: Right Arm Pharmacologic Stress Pharmacologic stress test was performed by injecting Regadenoson 0.4 mg IV push followed by the intravenous injection of 33.7 mCi of Tc-99m Sestamibi. Time of stress injection: 10:11 Date: 11/29/2024 Time of stress imagin:11 Date: 11/29/2024 Administration Route: IV Administration Site: Right Arm Gated Stress SPECT was performed 60 minutes after stress injection. The images were gated to evaluate regional wall motion and calculate left ventricular ejection fraction. Stress only was performed in the position. Nuclear Conclusion lvef 46% dilated LV no severe ischemia noted Condition at Discharge: Poor Final Diagnosis/Problems List # ESRD on HD- Cont HD # Acute Pneumonitis- Doxy # Bacteremia ruled out # Chest Pain- Cardio Cx, ECHO done, Stress test done # Acute on Chronic Resp Failure- Titrate Oxygen down # Pulm Edema # Goals of care discussion >18 mins FULL CODE Discharge Disposition: Home Discharge Instruct/Medications Diet: Renal Activity: Light activity Follow Up/Referral: Dr. Thompson on Wednesday at 11AM Medications: see med [facility] Discharge Statement: "Patient was advised to return to the ER or call 911 if any headaches, dizziness, shortness of breath, chest pain, abdominal pain, bleeding, fevers, or worsening of medical condition. Patient was counseled about treatment plan, medications, possible side effects, patientverbalized understanding. All questions were answered to the best of my ability. This discharge took greater then 30 minutes in planning, reviewing documentation, counseling the patient, and discussing with other team members." ASSESSMENT ASSESSMENT Assessment ESRd on HD Date of Service: November 29, 2024 Billing Provider: DAVE THOMPSON MD Common Visit Codes: 44773-XZQ/OBS DISCH DAY >30min DAVE THOMPSON MD November 29, 2024 17:53
== END 2024-11-29 17:00 | disposition home or self-care (01) | DRG 291 ==
LOC: ER 08:24 → OVERFLOW 13:24 → TELE-CENTR 13:28
PROVIDERS: ADMIT Internal Medicine; ATTEND Internal Medicine
PROC: 5A1D70Z Performance of Urinary Filtration, Intermittent, Less than 6 Hours Per Day (ICD-10-PCS; principal; 2024-11-28)
DX: I13.2 Hypertensive heart and chronic kidney disease with heart failure and with stage 5 chronic kidney disease, or end stage renal disease (principal); J96.21 Acute and chronic respiratory failure with hypoxia; N18.6 End stage renal disease; I24.9 Acute ischemic heart disease, unspecified; D61.818 Other pancytopenia; N25.81 Secondary hyperparathyroidism of renal origin; I27.20 Pulmonary hypertension, unspecified; I16.0 Hypertensive urgency; D63.1 Anemia in chronic kidney disease; I50.9 Heart failure, unspecified; Z99.2 Dependence on renal dialysis; Z99.81 Dependence on supplemental oxygen; J98.4 Other disorders of lung; E78.5 Hyperlipidemia, unspecified; K21.9 Gastro-esophageal reflux disease without esophagitis; Z86.16 Personal history of COVID-19; Z82.49 Family history of ischemic heart disease and other diseases of the circulatory system; Z91.013 Allergy to seafood
CPT/HCPCS: 36415; 71045; 78452; 80048; 80053; 80061; 80202; 80307; 81001; 83036; 83605; 83735; 83880; 84443; 84484; 85007; 85025; 85027; 87040; 87081; 90935; 93005; 93017; 93306; 94640; 96365; 96367; 96375; 99291; G0378; J2543